=== PATIENT | male | born 1940 | race Caucasian/White ===

== ENCOUNTER 2022-09-08 10:18 | Inpatient (IN) | payer OTHER ==
--- OUTSIDE RECORDS SUMMARY | 2022-09-08 10:23 | XMS REPORT | Continuity of Care Document ---
:1940 Author Organization [facility] t Address [address] [place] [address] Dr. Combs. [address] [place] [address] Care Team Providers Name Role Phone DONI ASTORGA Attending Clinician Unavailable Doni Astorga MD Attending Clinician Pob, Adc Lab Main Attending Clinician Unavailable Only, Adc Test Attending Clinician Unavailable Doctor Unassigned, [place] Attending Clinician Unavailable Kamille Roth Anavella Attending Clinician Unava ilable DONI ASTORGA Admitting Clinician Unavailable Doni Astorga MD Admitting Clinician Scotty Roth Anav Admitting Clinician Unavailable Payers Payer Name Policy Type Policy Number Effective Date Expiration Date S clay [facility] MEDICARE [id number] 2019 COMPLETE CHOICE 00:00:00 [facility] [id number] Problems This patient has no known problems. Allergies, Adverse Reactions, Alerts Allergy Allergy Status Severity Reaction(s) Onset Inactive Treating Comm ents Source Name Type Date Date Clinician No Known DA Active U 2018- DEVEN Allergyesi - Elpidiolan s 00:00: d 00 [facility] [place] NO KNOWN Drug [facility] This patient has no known medications. Procedures This patient has no known procedures. Encounters Start End Encounter Admission Attending Care Care Encounter Source Date/Time Date/Time Type Type Clinicians Facility Department ID 2021-08-26 Outpatient RIZWAN [facility] [id number] Univers 21:51:12 [facility] 2020-03-25 2020-03-25 [facility] [id number] 09:28:59 12:37:00 Encounter Doni Hernandez 350.1.13.10 [place] 4.2.7.2.686 Surgical [id number] [place] [address] 2020-03-24 2020-03-24 Validation Architect Roshan [facility] 1.2.840.114 [id number] 11:57:56 12:12:56 Visit Lab Main [place] 350.1.13.10 [place] 4.2.7.2.686 Professio [id number] [address] 2020-03-24 2020-03-24 Laboratory Only, [facility] 1.2.840.114 [id number] 11:03:26 11:18:26 Only Test [place] 350.1.13.10 [place] 4.2.7.2.686 Professio [id number] [address] 2020-03-24 2020-03-24 Outpatient R [facility] [id number] Univers 11:15:00 11:15:00 [facility] 2019-12-18 2019-12-18 [facility] [id number] 08:10:00 10:48:00 Encounter Doni Hernandez 350.1.13.10 [place] 4.2.7.2.686 Surgical [id number] [place] [address] 2019-12-18 2019-12-18 Orders Doctor DEJESUS [id number] [id number] 00:00:00 00:00:00 Only Unassigned, ANDERS 350.1.13.10 [facility] 4.2.7.2.686 [id number] 2019-12-09 2019-12-09 Validation Architect Roshan [facility] 1.2.840.114 [id number] 12:42:05 12:57:05 Visit Lab Main [place] 350.1.13.10 [place] 4.2.7.2.686 Professio [id number] [address] 2019-07-23 2019-08-05 [facility] 3 [facility] ENCPL CVA 5260 [place] 21:00:00 10:30:00 hez, 0924 ss [facility][Note 3] itation [place] d Results Test Description Test Time Test Comments Results Result Comments Source BASIC METABOLIC PANEL 2019-07-21 06:53:00 Test Item Value Reference Range Interpretation Comme nts SODIUM (test code = NA) 138 mmol/L 134-147 N POTASSIUM (test code = K) 3.6 mmol/L 3.4-5.0 N CHLORIDE (test code = CL) 104 mmol/L 100-108 N CARBON DIOXIDE (test code = CO2) 28 mmol/L 21-32 N ANION GAP (test code = GAP) 6.0 GAP calc 4.0-15.0 N GLUCOSE (test code = GLU) 129 MG/DL 70-110 H BLOOD UREA NITROGEN (test code = BUN) 10 MG/DL 7-18 N GLOMERULAR FILTRATION RATE (test code = GFR) >=60 max estimate estG FR >60 CREATININE (test code = CREAT) 1.1 MG/DL 0.8-1.3 N CALCIUM (test code = CA) 8.3 MG/DL 8.5-10.1 L CBC W/AUTO [id number] 06:40:00 Test Item Value Reference Range Interpretation Comments WHITE BLOOD CELL (test code = 10.0 K/mm3 3.5-11.0 N WBC) RED BLOOD CELL (test code = RBC) 4.80 M/mm3 4.70-6.10 N HEMOGLOBIN (test code = HGB) 14.8 G/DL 12.3-15.9 N HEMATOCRIT (test code = HCT) 44.4 % 35.8-46.7 N MEAN CELL VOLUME (test code = 92.5 Fl 86.3-98.9 N MCV) MEAN CELL HGB (test code = MCH) 30.8 pg 28.9-34.4 N MEAN CELL HGB CONCETRATION (test 33.3 G/DL 32.1-34.5 N code = MCHC) RED CELL DISTRIBUTION WIDTH (test 13.7 SD 11.5-14.5 N code = RDW) PLATELET COUNT (test code = PLT) 219.0 K/mm3 150-450 N MEAN PLATELET VOLUME (test code = 10.40 fL 7.0-9.6 H MPV) NEUTROPHIL % (test code = NT%) 68.7 % 40-76 LYMPHOCYTE % (test code = LY%) 21.8 % 20.5-51.1 N MONOCYTE % (test code = MO%) 8.7 % 1.7-9.3 N EOSINOPHIL % (test code = EO%) 0.4 % 0.0-6.0 N BASOPHIL % (test code = BA%) 0.4 % 0.0-2.0 N NEUTROPHIL # (test code = NT#) 6.85 K/mm3 1.8-7.6 N LYMPHOCYTE # (test code = LY#) 2.2 K/mm3 0.6-3.0 N MONOCYTE # (test code = MO#) 0.9 K/mm3 0.2-1.5 N EOSINOPHIL # (test code = EO#) 0.0 K/mm3 0.0-0.4 N BASOPHIL # (test code = BA#) 0.0 K/mm3 0.0-0.2 N MANUAL DIFF REQUIRED (test code = NO DIFF/SCN CRITERIA MDIFF) GLYCOSYLATED HEMOGLOBIN [id number] 09:52:00 Test Item Value Reference Range Interpretation Comments GLYCOSYLATED HEMOGLOBIN (HA1C) 6.4 % A1C 4.2-6.3 H (test code = GLYHGB) ESTIMATED AVERAGE GLUCOSE (test 137 MG/DLest code = EAG) LIPID PROFILE (CORONARY RISK)2019-07-20 09:45:00 Test Item Value Reference Range Interpretation Comments TRIGLYCERIDES (test code = TRIG) 109 MG/DL 0-150 N CHOLESTEROL (test code = CHOL) 169 MG/DL 133-200 N CHOLESTEROL/HDL RATIO (test code = 3.93 RATIO >0 CHOLHDL) HDL CHOLESTEROL (test code = HDL) 43 MG/DL 40-59 N NON-HDL CHOLESTEROL (test code = 126 mg/dL <130 NHDL) LIPOPROTEIN LDL (test code = LDL) 112 MG/DL 0-129 N LDL/HDL (test code = LDL/HDL) 2.60 Ratio 1.48-3.22 Avg N - MRI C-SPINE W W/O [id number] 21:02:00 FAX: Claudia Pollack MD [phone] Camps: PM St: ADM FAX: Walter Calderon MD [phone] FAX:Inga Reddy [phone] Name: JUAN SERRATO : 1940 Age/S: 79/[place] [address] [address] [id number] Loc: [address] [place] [address] Phys: Inga Ornelas MD Acct: [id number] Dis Date: Status: ADM IN PHONE #: [phone] Exam Date: 07/19/20191940 FAX #: Reason: R sided deficit EXAMS: CPT: [id number] MRI C- SPINE W W/O CONT 80062 Location: T 18 MRI cervical spine, 07/19/19 TECHNIQUE: MRI assessment of the cervical spine with and without contrast on a high field magnet. Multiplanar and multisequence technique performed. Patient given 10 mL of MultiHance was given for IV contrast CLINICAL HISTORY: CVA versus TIA. Right upper and lower extremity weakness COMPARISON EXAMS: MRIimaging of the brain conducted at the same time. FINDINGS: Cord caliber well maintained without abno rmal signal. 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 This exacerbates the effect of any epidural defect. Degenerative disc changes at C5-C6 are noted. Chronic microvascular changes in the sonia. No definite signal alteration again on sagittal T2-weighted imaging correlating with questionable area restrictionin the left side of the medulla seen on the MRI imaging of the brain. Presence of a small central protrusion without stenosis at C2-C3. At C3-C4, hypertrophy of the facet joints and uncovertebral hypertrophy. Moderate degree of right greater than left foraminal narrowing. Minimal bulge with borderlinecompromise of the canal predominantly due to the narrowing of the canal. At C4-C5 there is presence of a 3 to 4 mm central protrusion. Compromise of the canal without cord deformity. Uncovertebral hypertrophy with small degree of foraminal narrowing. At C5-C6 there is presence of spondylotic central protrusion/bulge of 4 to 5 mm appearing to contact and deform the cord with compromise of the canal. No definite signal alteration within the cord. Deformity of both C6 ventral outlets and with bilateralforaminal encroachment right greater left of moderate degree. PAGE 1 Signed Report (CONTINUED) FAX: Claudia Pollack MD [phone] Camps: PM St: ADM FAX: Walter Calderon MD [phone] FAX: Inga Reddy [phone] Name: JUAN SERRATO [place] : 1940 Age/S: 79/M [address] [facility] Unit #: [id number] Loc: [address] [place] [address] Phys: Inga Ornelas MD Acct: [id number] Dis Date:Status: ADM IN PHONE #: [phone] Exam Date: 07/19/20191940 FAX #: Reason: R sided deficit EXAMS: CPT: [id number] MRI C- SPINE W W/O CONT 85053 (Continued) At C6-C7, right paracentral protrusion of 3 to 4 mm with deformity right C7 ventral outlet without definite compromise of the canal. Small degree of compromise of the canal on the right side. Foraminal narrowing right greater than left. At C7-T1 there is presence of a fairly moderate to large right far lateral/right foraminal protrusion protruding by approximately 6 to 7 mm with deformity of the right C8 ventral outlet and with significant right foraminal encroachment placing the right C8 nerve root sleeve at risk for impingement. Do not seeany definite areas of abnormal enhancement. IMPRESSION: Moderate to large right far lateral protrusion at C7-T1 with considerable deformity of the right C8 ventral outlet and with fairly severe degree of right foraminal narrowing. Compromise of the canal and with probable mild cord compression due to central protrusion at C5-C6 and with deformity of both C6 ventral outlets without signal alteration within the cord. Compromise of the canal at C4-C5 and of borderline degree at C3-C4 predominantly due to congenital narrowing of the canal Right paracentral protrusion at C6-C7 with small degree of deformity of the right C7 ventral outlet at 210 Reported and signed by: Gifty Woodall M.D. CC: Claudia Monterroso MD; Walter Carpio MD; Inga Ornelas MD Technologist: Henrry Khanna, RT(R)(CT)(MRI) Transcribed Date/Time/By: 07/19/2019 (2101) :[email or web address] Orig Print D/T: S: 07/19/2019 (2104) PAGE 2 Signed Report- CT ANGIO [id number] 20:50:00 Name: JUAN SERRATO : 1940 Age/S: 79 / M [address] [address] [place] [address] Unit #: [id number] Loc: [place] [address] Phys: Inga Ornelas MD Acct: [id number] Dis Date: Status: ADM IN PHONE #: [phone] Exam Date: 07/19/2019 1618 FAX #: Reason: R upper and lower extremity weakness Report Has Been Amended EXAMS: CPT: [id number] CT ANGIO HEAD 90732 Addendum - 07/19/2019 SIGNED 07/19/2019 ADDENDUM: [id number] CT/CTANHDWWO ADDENDUM: 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 This is noted just above the vertebral vertebral arteries probably even thrombus in the left vertebral artery/occlusion. There is fairly normal enhancement of the section maintainer and superior cerebellar artery and even of the both picas noted. Case has been reviewed with Dr. Monterroso on 07/19/19 at at 8:35 PM. Again possible small acute vascular insult in the left medulla at 2049 Reported and signed by: Gifty Woodall M.D. Transcribed: 07/19/2019 (2049) [email or web address] Report Location: T 18 CTA of the brain 07/19/19 TECHNIQUE: CTA examination of the cnuoij-fi-Jfsdml was performed on a helical scanner with patient given 100 mL of Isovue 300. Vascular protocol performed. Ultrathin slice axial images acquired from skull base through vertex of brain utilizing contiguous 0.6mm slice thickness with coronal and sagittal reformatted images acquired on the PAC workstation. Post contrast only images acquired. 3D reformatted images also acquired of the intracranial vessels using VITREA software by the interpreting radiologist . The examination was performed on an updated helical CT scanner utilizing low-dose radiation technique. Automatic exposure technique was utilized to reduce radiation dose. CLINICAL HISTORY: Right upper extremity weakness, stroke assessment, emergency room presentation Comparison exam: Head CTexam of 07/19/19 PAGE 1 Signed Report (CONTINUED) Name: JUAN SERRATO : 1940 Age/S: 79 / M [address] [address] [place] Unit #: [id number] Loc: [place] [address] Phys: Inga Ornelas MD Acct: [id number] Dis Date: Status: ADM IN PHONE #: [phone] Exam Date: 07/19/2019 161 FAX #: Reason: R upper and lower extremity weakness Report Has Been Amended EXAMS: CPT: [id number] CT ANGIO HEAD 82617 (Continued) FINDINGS: Do not see any findings suggestive of an aneurysm or vascular malformation. No discrete area of stenosis or pruning of the vessels is seen. Minimal calcificplaque formation along the left greater than right carotid system with only very minimal narrowing. No large branch occlusion is seen. No findings suggestive of vertebro basilar insufficiency is seen.No space occupying process is seen. No midline shift or abnormal enhancement is seen. No intracranial hemorrhage is seen with assessment for subarachnoid hemorrhage limited since post contrast images only acquired. IMPRESSION: No significant intracranial arterial stenosis or large branch occlusion. Noabnormal enhancing masses Location: T 18 CTA neck, 07/19/19 TECHNIQUE: CTA examination of the neck with contrast using vascular protocol performed on a helical scanner. Scanning conducted using ultrathin contiguous 0.6mm axial slice technique from aortic arch through skull base. Patient given 100 mL of Isovue 360 for contrast. High resolution sagittal and coronal reformatted images acquired on the PAC workstation. 3D volume rendering images also acquired by interpreting radiologist using VITREA software provided on the PAC system . The examination was conducted on an updated helical CT scanner utilizing low-dose radiation technique. Automatic exposure technique was utilized to reduce radiation dose CLINICAL HISTORY: Right upper and lower extremity weakness, ER presentation Comparison exam: HeadCT exam 07/19/19 PAGE 2 Signed Report (CONTINUED) Name: JUAN SERRATO : 1940 Age/S: 79 / M [address] [place] [address] Unit #: [id number] Loc: [place] [address] Phys: Inga Ornelas MD Acct: [id number] Dis Date: Status: ADM IN PHONE #: [phone] Exam Date: 07/19/2019 1612 FAX #: Reason: R upper and lower extremity weakness Report Has Been Amended EXAMS: CPT: [id number] CT ANGIO HEAD 18467 (Continued) FINDINGS: No findings of concern for vasculitis. No findings ofconcern for vascular dissection. There is a small degree of calcific plaque formation in the right carotid system with less than 30% degree of narrowing. No measurable left carotid stenosis. No tandem lesion identified more distally. Likewise there is normal enhancement seen in the vertebral arteries. Normal branching pattern of the vessels arising from the aortic arch. No significant stenosis of theprebulbar portion of either carotid artery is seen. No significant compromise of the brachiocephalicartery and subclavian arteries. No significant atherosclerotic plaque formation is seen. IMPRESSION:Less than 30% degree of stenosis in the right carotid system due to calcific plaque formation at theright carotid bulb. No measurable left carotid stenosis. No findings of concern for dissection at 1701 Reported and signed by: Gifty Woodall M.D. CC: Inga Ornelas MD Technologist:Henrry Khanna, RT(R)(CT)(MRI); CTDI: DLP: Trnscb Date/Time: 07/19/2019 (1701) [email or web address] Orig Print D/T: S: 07/19/2019 (7334) PAGE 3 Signed Report- CT ANGIO [id number] 20:50:00 Name: JUAN SERRATO : 1940 Age/S: 79 / M [address] [address] [place] Unit #: [id number] Loc: [place] [address] Phys: Inga Ornelas MD Acct: [id number] Dis Date: Status: ADMIN PHONE #: [phone] Exam Date: 07/19/2019 1625 FAX #: Reason: R upper and lower extremity weakness Report Has Been Amended EXAMS: CPT: [id number] CT ANGIO NECK 49883 Addendum - 07/19/2019 SIGNED 07/19/2019 ADDENDUM: [id number] CT/CTANNKWWO ADDENDUM: 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 This is noted just above the vertebral vertebral arteries probably even thrombus in the left vertebral artery/occlusion. There is fairly normal enhancement of the section maintainer and superior cerebellar artery and even of the both picas noted. Case has been reviewed with Dr. Monterroso on 07/19/19 at at 8:35 PM. Again possible small acute vascular insult in the left medulla at 2049 Reported and signed by: Gifty Woodall M.D. Transcribed: 07/19/2019 (2049) [email or web address] Report Location: T 18 CTA of the brain07/19/19 TECHNIQUE: CTA examination of the frlrib-or-Psupua was performed on a helical scanner with patient given 100 mL of Isovue 300. Vascular protocol performed. Ultrathin slice axial images acquired from skull base through vertex of brain utilizing contiguous 0.6mm slice thickness with coronal andsagittal reformatted images acquired on the PAC workstation. Post contrast only images acquired. 3D reformatted images also acquired of the intracranial vessels using VITREA software by the interpreting radiologist . The examination was performed on an updated helical CT scanner utilizing low-dose radiation technique. Automatic exposure technique was utilized to reduce radiation dose. CLINICAL HISTORY: Right upper extremity weakness, stroke assessment, emergency room presentation Comparison exam: Head CT exam of 07/19/19 PAGE 1 Signed Report (CONTINUED) Name: JUAN SERRATO : 1940 Age/S: 79 / M [address] [address] [place] Unit #: [id number] Loc: [place] [address] Phys: Kamini Ornelas MD Acct: [id number] Dis Date: Status: ADM IN PHONE #: [phone] Exam Date: 07/19/2019 162 FAX #: Reason: R upper and lower extremity weakness Report Has Been Amended EXAMS: CPT: [id number] CT ANGIO NECK 18245 (Continued) FINDINGS: Do not see any findings suggestive of an aneurysmor vascular malformation. No discrete area of stenosis or pruning of the vessels is seen. Minimal calcific plaque formation along the left greater than right carotid system with only very minimal narrowing. No large branch occlusion is seen. No findings suggestive of vertebro basilar insufficiency isseen. No space occupying process is seen. No midline shift or abnormal enhancement is seen. No intracranial hemorrhage is seen with assessment for subarachnoid hemorrhage limited since post contrast images only acquired. IMPRESSION: No significant intracranial arterial stenosis or large branch occlusion. No abnormal enhancing masses Location: T 18 CTA neck, 07/19/19 TECHNIQUE: CTA examination of the neck with contrast using vascular protocol performed on a helical scanner. Scanning conducted usingultrathin contiguous 0.6mm axial slice technique from aortic arch through skull base. Patient given 100 mL of Isovue 360 for contrast. High resolution sagittal and coronal reformatted images acquired on the PAC workstation. 3D volume rendering images also acquired by interpreting radiologist using VITREA software provided on the PAC system . The examination was conducted on an updated helical CT scanner utilizing low-dose radiation technique. Automatic exposure technique was utilized to reduce radiation dose CLINICAL HISTORY: Right upper and lower extremity weakness, ER presentation Comparison exam: Head CT exam 07/19/19 PAGE 2 Signed Report (CONTINUED) Name: JUAN SERRATO : 1940 Age/S: 79 / M [address] [address] [place] Unit #: [id number] Loc: [place] [address] Phys: Inga Ornelas MD Acct: [id number] Dis Date: Status: ADM IN PHONE #: [phone] Exam Date: 07/19/2019 1622 FAX #: Reason: R upper and lower extremity weakness Report Has Been Amended EXAMS: CPT:[id number] CT ANGIO NECK 01450 (Continued) FINDINGS: No findings of concern for vasculitis. No findings of concern for vascular dissection. There is a small degree of calcific plaque formation in the right carotid system with less than 30% degree of narrowing. No measurable left carotid stenosis. No tandem lesion identified more distally. Likewise there is normal enhancement seen in the vertebral arteries. Normal branching pattern of the vessels arising from the aortic arch. No significant stenosis of the prebulbar portion of either carotid artery is seen. No significant compromise of the brachiocephalic artery and subclavian arteries. No significant atherosclerotic plaque formation is seen. IMPRESSION: Less than 30% degree of stenosis in the right carotid system due to calcific plaque formation at the right carotid bulb. No measurable left carotid stenosis. No findings of concern for dissection at 1701 Reported andsigned by: Gifty Woodall M.D. CC: Inga Ornelas MD Technologist:Henrry Khanna, RT(R)(CT)(MRI); CTDI: DLP: Trnscb Date/Time: 07/19/2019 (1701) [email or web address] Orig Print D/T: S: 07/19/2019 (17 04) PAGE 3 Signed Report- MRI BRAIN W WO [id number] 20:42:00 FAX: Claudia Pollack MD [phone] Camps: PM St: ADM FAX: Walter Calderon MD [phone] FAX:Inga Reddy [phone] Name: JUAN SERRATO : 1940 Age/S: 79/M [address] [address] [place] [address] Unit #: [id number] Loc: [address] [place] [address] Phys: Inga Ornelas MD Acct: [id number] Dis Date: Status: ADM IN PHONE #: [phone] Exam Date: 07/19/2019 191 FAX #: Reason: CVA vs TIA EXAMS: CPT: [id number] MRI BRAIN W WO CONT 39710 Location: T 18 MRI brain, 07/19/19 COMPARISON EXAM: Head CT exam and CTA assessment of the head and neck of 07/19/19 TECHNIQUE: MRI examination of the brain with and without contrast performed on high field magnet with 10 ml of MultiHance was given for contrast. Multiplanar and multisequence technique acquired through brain in all 3 planes CLINICAL HISTORY: Right upper and lower extremity weakness. Stroke assessment, CVA versus TIA. FINDINGS: No positivemass-effect, midline shift, extra-axial collection, no intracranial hemorrhage seen. No acute territorial infarction is seen. There is no intra or extra-axial masses or abnormal enhancing lesions are identified. Assessment of skull base unremarkable. There is subtle high signal having a curvilinear contour on diffusion-weighted imaging in the left side of the medulla. This is noted on both coronal and axial imaging. It may be artifactual without associated signal alteration on FLAIR or T2-weighted imaging. No enhancement is seen. Follow-up may be helpful for further assessment if indicated to exclude relatively acute vascular insult. It may even exhibits subtle low signal on ADC tracing. No other findings of concern for acute vascular insult is seen. Finding in the left medulla are identified in axial images on series 4 image 5 and on diffusion-weighted imaging on image #20 of series 6.. There is age appropriate atrophy and small degree of chronic microvascular changes. No significant magnetic susceptibility artifact or old blood products. Small degree of chronic microvascular changes even seen in the snoia. The sella region is unremarkable. Abnormal flow void in the basilar artery with short segment occlusion felt to be present on CTA exam. No sinus disease is seen IMPRESSION: PAGE 1 Signed Report (CONTINUED) FAX: Claudia Pollack MD [phone] Camps: PM St: ADM FAX: Walter Calderon MD [phone] FAX: Inga Reddy [phone] Name: JUAN SERRATOScott [place] : 1940 Age/S: 79/M [address] [address] [place] Unit #: [id number] Loc: [address] [place] [address] Phys: Inga Ornelas MD Acct:[id number] Dis Date: Status: ADM IN PHONE #: [phone] Exam Date: 07/19/2019 191 FAX #: Reason: CVA vs TIA EXAMS: CPT: [id number] MRI BRAIN W WO CONT 48707 (Continued) No definite acute vascular insult or intracranial hemorrhage. No abnormal enhancement or space-occupying process. Curvilinear high signal on diffusion weighted imaging is seen in the left side of the possibly artifactual without signal alteration on FLAIR and T2-weighted imaging. Follow- up may be helpful given Abnormal flow voidof the basilar artery with short segment occlusion/critical stenosis seen on CTA exam. at 2041 Reported and signed by: Gifty Woodall M.D. CC: Claudia Monterroso MD; Walter Carpio MD; Inga Ornelas MD Technologist: Henrry Khanna, RT(R)(CT)(MRI) Transcribed Date/Time/By: 07/19/2019 (2041) :[email or web address] Orig Print D/T: S: 07/19/2019 (2044) PAGE 2 Signed Report- CT ANGIO [id number] 17:01:00 Name: JUAN SERRATOScott [place] : 1940 Age/S: 79 / M [address] [address] [place] Unit #: [id number] Loc: [place] [address] Phys: Inga Ornelas MD Acct: [id number] Dis Date: Status: REG ER PHONE #: [phone] Exam Date: 07/19/2019 1614 FAX #: Reason: R upper and lower extremity weakness EXAMS: CPT: [id number] CT ANGIO HEAD [address]709 Location: T 18 CTA of the brain 07/19/19 TECHNIQUE: CTA examination of the qlasws-ym-Akqyeb was performed on a helical scanner with patient given 100 mL of Isovue 300. Vascular protocol performed. Ultrathin slice axial images acquired from skull base through vertex of brain utilizing contiguous 0.6mm slice thickness with coronal and sagittal reformatted images acquired on the PAC workstation. Post contrast only images acquired. 3D reformatted images also acquired of the intracranial vessels using VITREA software by the interpreting radiologist . The examination was performed on an updated helical CT scanner utilizing low-dose radiation technique. Automatic exposure technique was utilized to reduce radiation dose. CLINICAL HISTORY: Right upper extremity weakness, stroke assessment, emergency room presentation Comparison exam: Head CT exam of 07/19/19FINDINGS: Do not see any findings suggestive of an aneurysm or vascular malformation. No discrete area of stenosis or pruning of the vessels is seen. Minimal calcific plaque formation along the left greater than right carotid system with only very minimal narrowing. No large branch occlusion is seen. No findings suggestive of vertebro basilar insufficiency is seen. No space occupying process is seen.No midline shift or abnormal enhancement is seen. No intracranial hemorrhage is seen with assessment for subarachnoid hemorrhage limited since post contrast images only acquired. IMPRESSION: No significant intracranial arterial stenosis or large branch occlusion. No abnormal enhancing masses Location: T 18 PAGE 1 Signed Report (CONTINUED) Name: JUAN SERRATO : 1940 Age/S: 79 / M [address] [address] [place] Unit #: [id number] Loc: [place] [address] Phys: Inga Ornelas MD Acct: [id number] Dis Date: Status: REG ER PHONE #: [phone] Exam Date: 07/19/2019 161 FAX #: Reason: R upper and lower extremity weakness EXAMS: CPT: [id number] CT ANGIO HEAD 87184 (Continued) CTA nec k, 07/19/19 TECHNIQUE: CTA examination of the neck with contrast using vascular protocol performed on a helical scanner. Scanning conducted using ultrathin contiguous 0.6mm axial slice technique from aortic arch through skull base. Patient given 100 mL of Isovue 360 for contrast. High resolution sagittal and coronal reformatted images acquired on the PAC workstation. 3D volume rendering images also acquired by interpreting radiologist using VITREA software provided on the PAC system . The examination was conducted on an updated helical CT scanner utilizing low-dose radiation technique. Automatic exposure technique was utilized to reduce radiation dose CLINICAL HISTORY: Right upper and lower extrem ity weakness, ER presentation Comparison exam: Head CT exam 07/19/19 FINDINGS: No findings of concern for vasculitis. No findings of concern for vascular dissection. There is a small degree of calcificplaque formation in the right carotid system with less than 30% degree of narrowing. No measurable left carotid stenosis. No tandem lesion identified more distally. Likewise there is normal enhancementseen in the vertebral arteries. Normal branching pattern of the vessels arising from the aortic arch. No significant stenosis of the prebulbar portion of either carotid artery is seen. No significant compromise of the brachiocephalic artery and subclavian arteries. No significant atherosclerotic plaque formation is seen. IMPRESSION: Less than 30% degree of stenosis in the right carotid system due to calcific plaque formation at the right carotid bulb. No measurable left carotid stenosis. No findingsof concern for dissection PAGE 2 Signed Report (CONTINUED) Name: JUAN SERRATO [facility] :1940 Age/S: 79 / M [address] [facility] [place] Unit #: [id number] Loc: [place] [address] Phys: Inga Ornelas MD Acct: [id number] Dis Date: Status: REG ER PHONE #: [phone] Exam Date: 07/19/2019 1612 FAX #: Reason: R upper and lower extremity weakness EXAMS: CPT: [id number] CT ANGIO HEAD 67299 (Continued) at 1701 Reported and signed by: Gifty Woodall M.D. CC: Inga Ornelas MD Technologist:Henrry Khanna, RT(R)(CT)(MRI); CTDI: DLP: Trnscb Date/Time: 07/19/2019 (170) [email or web address] Orig Print D/T: S:07/19/2019 (5545) PAGE 3 Signed Report- CT ANGIO [id number] 17:01:00 Name: JUAN SERRATO : 1940 Age/S: 79 / M [address] [address] [place] Unit #: [id number] Loc: [place] [address] Phys: Inga Ornelas MD Acct: [id number] Dis Date: Status: REG ER PHONE #: [phone] Exam Date: 07/19/2019 1622 FAX #: Reason: R upper and lower extremity weakness EXAMS: CPT: [id number] CT ANGIO NECK [address] Location: T 18 CTA of the brain 07/19/19 TECHNIQUE: CTA examination of the odryap-uz-Wkudkp was performed on a helical scanner with patient given 100 mL ofIsovue 300. Vascular protocol performed. Ultrathin slice axial images acquired from skull base through vertex of brain utilizing contiguous 0.6mm slice thickness with coronal and sagittal reformatted images acquired on the PAC workstation. Post contrast only images acquired. 3D reformatted images alsoacquired of the intracranial vessels using VITREA software by the interpreting radiologist . The examination was performed on an updated helical CT scanner utilizing low-dose radiation technique. Automatic exposure technique was utilized to reduce radiation dose. CLINICAL HISTORY: Right upper extremity weakness, stroke assessment, emergency room presentation Comparison exam: Head CT exam of 07/19/19FINDINGS: Do not see any findings suggestive of an aneurysm or vascular malformation. No discrete area of stenosis or pruning of the vessels is seen. Minimal calcific plaque formation along the left greater than right carotid system with only very minimal narrowing. No large branch occlusion is seen. No findings suggestive of vertebro basilar insufficiency is seen. No space occupying process is seen.No midline shift or abnormal enhancement is seen. No intracranial hemorrhage is seen with assessment for subarachnoid hemorrhage limited since post contrast images only acquired. IMPRESSION: No significant intracranial arterial stenosis or large branch occlusion. No abnormal enhancing masses Location:T 18 PAGE 1 Signed Report (CONTINUED) Name: JUAN SERRATO : 1940 Age/S: 79 / M [address] [address] [place] Unit #: [id number] Loc: [place] [address] Phys: Inga Ornelas MD Acct: [id number] Dis Date: Status: REG ER PHONE #: [phone] Exam Date: 07/19/2019 1622 FAX #: Reason: R upper and lower extremity weakness EXAMS: CPT: [id number] CT ANGIO NECK 55616 (Continued) CTA neck, 07/19/19 TECHNIQUE: CTA examination of the neck with contrast using vascular protocol performed alfonzo helical scanner. Scanning conducted using ultrathin contiguous 0.6mm axial slice technique from aortic arch through skull base. Patient given 100 mL of Isovue 360 for contrast. High resolution sagittal and coronal reformatted images acquired on the PAC workstation. 3D volume rendering images also acquired by interpreting radiologist using VITREA software provided on the PAC system . The examinationwas conducted on an updated helical CT scanner utilizing low-dose radiation technique. Automatic exposure technique was utilized to reduce radiation dose CLINICAL HISTORY: Right upper and lower extremity weakness, ER presentation Comparison exam: Head CT exam 07/19/19 FINDINGS: No findings of concern for vasculitis. No findings of concern for vascular dissection. There is a small degree of calcific plaque formation in the right carotid system with less than 30% degree of narrowing. No measurable left carotid stenosis. No tandem lesion identified more distally. Likewise there is normal enhancement seen in the vertebral arteries. Normal branching pattern of the vessels arising from the aortic arch. No significant stenosis of the prebulbar portion of either carotid artery is seen. No significant compromise of the brachiocephalic artery and subclavian arteries. No significant atherosclerotic plaque formation is seen. IMPRESSION: Less than 30% degree of stenosis in the right carotid system due to calcific plaque formation at the right carotid bulb. No measurable left carotid stenosis. No findings of concern for dissection PAGE 2 Signed Report (CONTINUED) Name: JUAN SERRATO : 1940 Age/S: 79 / M [address] [address] [place] Unit #: [id number] Loc: [place] [address] Phys: Inga Ornelas MD Acct: [id number] Dis Date: Status: REG ER PHONE #: [phone] Exam Date: 07/19/2019 1622 FAX #: Reason: R upper and lower extremity weakness EXAMS: CPT: [id number] CT ANGIO NECK 44196(Continued) at 1701 Reported and signed by: Gifty Woodall M.D. CC: Inga Ornelas MD Technologist:Henrry Khanna, RT(R)(CT)(MRI); CTDI: DLP: Trnscb Date/Time: 07/19/2019 (1700) t.[email or web address] Orig Print D/T: S: 0 07/19/2019 (1703) PAGE 3 Signed Report- CT HEAD/BRAIN W/O [id number] 16:55:00 Name: JUAN SERRATO [facility] : 1940 Age/S: 79 / M [address] [address] [place] Unit #: [id number] Loc: [place] [address] Phys: Inga Ornelas MD Acct: [id number] Dis Date: Status: REG ER PHONE #: [phone] Exam Date: 07/19/2019 1615 FAX #: Reason: R upper and lower extremity weakness EXAMS: CPT: [id number] CT HEAD/BRAIN W/O CONT 83959 EXAM: - CT HEAD/BRAIN W/O CONT HISTORY: R upperand lower extremity weakness LOCATION: B2 COMPARISON: None available time of interpretation. TECHNIQUE: Axial tomograms through the brain were obtained without intravenous contrast. Coronal and sagittal reformatted images are provided. All CT scans are performed using radiation dose reduction technique. Technical factors are evaluated and adjusted to insure appropriate moderation of exposure. Automated dose management technology is applied to adjust the radiation dose to minimize exposure while achieving a diagnostic quality image. FINDINGS: Mild periventricular and deep white matter hypodensities are identified indicative of chronic microvascular ischemic changes. No hypodensity suggesting acute cerebral infarction is identified, however MRI is more sensitive if this diagnosis is clinically suspected. No intracranial hemorrhage or extra-axial collection is identified. There is no mass or mass effect. There is mild diffuse prominence of the extra-axial spaces and ventricles. The orbits are unremarkable. The visualized paranasal sinuses and mastoid air cells are clear. No acute fracture is present. IMPRESSION: No acute intracranial abnormality. Mild chronic microvascular ischemic changes. at 1655 Reported and signed by: Micaela Barrera MD PAGE 1 Signed Report (CONTINUED) Name: JUAN SERRATO : 1940 Age/S: 79 / M [address] [address] [place] Unit #: [id number] Loc: [place] [address] Phys: Inga Ornelsa MD Acct: [id number] Dis Date: Status: REG ER PHONE #: [phone] Exam Date: 8 1184 FAX #: Reason: R upper and lower extremity weakness EXAMS: CPT: [id number] CT HEAD/BRAIN W/O CONT 27725 (Continued) CC: Inga Ornelas MD Technologist:Henrry Khanna, RT(R)(CT)(MRI); CTDI: DLP: Trnscb Date/Time: 07/19/2019 (1654) [email or web address] Orig Print D/T: S: 07/19/2019 (2442) PAGE 2 Signed ReportCOMPREHENSIVE METABOLIC [id number] 16:51:00 Test Item Value Reference Range Interpretation Comments SODIUM (test code = NA) 138 mmol/L 134-147 N POTASSIUM (test code = 3.8 mmol/L 3.4-5.0 N K) CHLORIDE (test code = 106 mmol/L 100-108 N CL) CARBON DIOXIDE (test 26 mmol/L 21-32 N code = CO2) ANION GAP (test code = 6.0 GAP calc 4.0-15.0 N GAP) GLUCOSE (test code = 137 MG/DL 70-110 H GLU) BLOOD UREA NITROGEN 10 MG/DL 7-18 N (test code = BUN) GLOMERULAR FILTRATION >=60 max estimate >60 RATE (test code = GFR) estGFR CREATININE (test code = 1.1 MG/DL 0.8-1.3 N CREAT) TOTAL PROTEIN (test code 7.6 G/DL 6.4-8.2 N = PROT) ALBUMIN (test code = 3.9 G/DL 3.4-5.0 N ALB) GLOBULIN (test code = 3.7 GM/dL GLOB) ALBUMIN/GLOBULIN RATIO 1.1 RATIO 1.2-2.2 L (test code = A/G) CALCIUM (test code = CA) 8.4 MG/DL 8.5-10.1 L BILIRUBIN TOTAL (test 0.70 MG/DL 0.2-1.2 N code = BILT) SGOT/AST (test code = 14 Unit/L 15-37 L AST) SGPT/ALT (test code = 12 Unit/L 12-78 N ALT) ALKALINE PHOSPHATASE 108 Unit/L 50-136 N TOTAL (test code = ALKP) Completed by Nursing: [id number] 16:51:00 Test Item Value Reference Range Interpretation Comments MAGNESIUM (test code = MAG) 2.0 MG/DL 1.8-2.4 N Completed by Nursing: [id number] 16:51:00 Test Item Value Reference Range Interpretation Comments TROPONIN-I (test < 0.015 NG/ML 0.000-0.045 N Negative: </= 0.045 code = TROPI) Positive: >/= 0.046 Correlation wit h serial results, other cardiac markers, and cl inical findings is nec essary to determine the c linical significance of this result. Quantit ative results using d ifferent methodologies s hould not be compared to one another as nume rical results may mamta yby method. Completed by Nursing: NOCBC W/AUTO [id number] 16:19:00 Test Item Value Reference Range Interpretation Comments WHITE BLOOD CELL (test code = 8.9 K/mm3 3.5-11.0 N WBC) RED BLOOD CELL (test code = RBC) 4.83 M/mm3 4.70-6.10 N HEMOGLOBIN (test code = HGB) 14.9 G/DL 12.3-15.9 N HEMATOCRIT (test code = HCT) 44.2 % 35.8-46.7 N MEAN CELL VOLUME (test code = 91.5 Fl 86.3-98.9 N MCV) MEAN CELL HGB (test code = MCH) 30.8 pg 28.9-34.4 N MEAN CELL HGB CONCETRATION (test 33.7 G/DL 32.1-34.5 N code = MCHC) RED CELL DISTRIBUTION WIDTH (test 13.8 SD 11.5-14.5 N code = RDW) PLATELET COUNT (test code = PLT) 234.0 K/mm3 150-450 N MEAN PLATELET VOLUME (test code = 10.30 fL 7.0-9.6 H MPV) NEUTROPHIL % (test code = NT%) 81.5 % 40-76 H LYMPHOCYTE % (test code = LY%) 12.5 % 20.5-51.1 L MONOCYTE % (test code = MO%) 5.7 % 1.7-9.3 N EOSINOPHIL % (test code = EO%) 0.1 % 0.0-6.0 N BASOPHIL % (test code = BA%) 0.2 % 0.0-2.0 N NEUTROPHIL # (test code = NT#) 7.28 K/mm3 1.8-7.6 N LYMPHOCYTE # (test code = LY#) 1.1 K/mm3 0.6-3.0 N MONOCYTE # (test code = MO#) 0.5 K/mm3 0.2-1.5 N EOSINOPHIL # (test code = EO#) 0.0 K/mm3 0.0-0.4 N BASOPHIL # (test code = BA#) 0.0 K/mm3 0.0-0.2 N MANUAL DIFF REQUIRED (test code = NO DIFF/SCN CRITERIA MDIFF)
[2022-09-08] MEDS ORDERED: ONDANSETRON 4 MG/2 ML VIAL ONE (10:55)
[2022-09-08] MEDS ORDERED: MORPHINE 2 MG/ML SYR ONE ×2 (10:55→13:58)
[2022-09-08 11:15] LABS: Absolute Lymphocytes (CBC) 1.2 K/uL (0.7-4.9); Hematocrit 40.6 % (39.6-49.0); Lymphocytes % 15.6 % (15.3-44.8); MCV 94.5 fL (80-100); MPV 8.8 fL (7.6-11.3)
[2022-09-08 11:30] LABS: Protime INR 1.1
--- NOTE | 2022-09-08 11:46 | ER ---
Nurse's Notes [facility] Name: Kristopher Altamirano Age: 82 yrs Sex: Male : 1940 Arrival Date: 09/08/2022 Time: 10:23 Bed 13 Private MD: Diagnosis: Displaced intertrochanteric fracture of right femur Presentation: 09/08 10:50 Chief complaint: Patient states: fell at dr office in parking lot on right hip. [facility] Coronavirus screen: Vaccine status: Patient reports receiving the 2nd dose of the covid vaccine. Client denies travel out of the [place] in the last 14 days. Ebola Screen: Patient negative for fever greater than or equal to 101.5 degrees Fahrenheit, and additional compatible Ebola Virus Disease symptoms Patient denies exposure to infectious person. Patient denies travel to an Ebola-affected area in the 21 days before illness onset. Initial Sepsis Screen: Does the patient meet any 2 criteria? No. Patient's initial sepsis screen is negative. Does the patient have a suspected source of infection? No. Patient's initial sepsis screen is negative. Risk Assessment: Do you want to hurt yourself or someone else? Patient reports no desire to harm self or others. 10:50 Method Of Arrival: Wheelchair [facility] 10:50 Acuity: BEATRIZ 3 5 Triage Assessment: 10:51 General: Appears distressed, uncomfortable, well groomed, well developed, well jh5 nourished, Behavior is calm, cooperative, appropriate for age. Pain: Complains of pain in right hip. Historical: - Allergies: 10:51 No Known Allergies; jh5 - PMHx: 10:51 Hypercholesterolemia; Hypertensive disorder; [facility] - Immunization history:: Adult Immunizations up to date. - Social history:: Smoking status: Patient denies any tobacco usage or history of. - Family history:: not pertinent. - Hospitalizations: : No recent hospitalization is reported. Screenin:55 Abuse screen: Denies threats or abuse. Denies injuries from another. Nutritional kb3 screening: No deficits noted. Tuberculosis screening: No symptoms or risk factors identified. Fall Risk None identified. Assessment: 10:55 General: Appears distressed, uncomfortable, Behavior is cooperative, appropriate for kb3 age. Pain: Complains of pain in right hip Pain currently is 10 out of 10 on a pain scale. Neuro: No deficits noted. Cardiovascular: No deficits noted. Respiratory: No deficits noted. GI: No deficits noted. : No deficits noted. EENT: No deficits noted. Derm: No deficits noted. Musculoskeletal: Reports Pain is 10 out of 10 on a pain scale. Injury Description: Deformity sustained to right hip is displaced, was sustained less than 30 minutes ago. Vital Signs: 10:50 Pulse 67; Resp 16; Temp 98.7; Pulse Ox 100% ; Weight 68.04 kg; Height 5 ft. 6 in. [facility] (167.64 cm); 12:03 BP 151 / 89; Pulse 77; Resp 18; Pulse Ox 98% ; Pain 9/10; kb3 14:23 BP 141 / 85; Pulse 84; Pulse Ox 99% on R/A; ko1 10:50 Body Mass Index 24.21 (68.04 kg, 167.64 cm) [facility] [place] Coma Score: 10:55 Eye Response: spontaneous(4). Verbal Response: oriented(5). Motor Response: obeys kb3 commands(6). Total: 15. Trauma Score (Adult): 10:55 Eye Response: spontaneous(1); Verbal Response: oriented(1); Motor Response: obeys kb3 commands(2); Systolic BP: > 89 mm Hg(4); Respiratory Rate: 10 to 29 per min(4); Georges Score: 15; Trauma Score: 12 ED Course: 10:23 Patient arrived in ED. rg4 10:39 Mundo Lopez MD is Attending Physician. rn 10:41 Mila Moulton, JENNY is Primary Nurse. ko1 10:51 Triage completed. 5 10:51 Arm band placed on right wrist. jh5 10:55 Patient has correct armband on for positive identification. Bed in low position. Call kb3 light in reach. Side rails up X 1. Client placed on continuous cardiac and pulse oximetry monitoring. NIBP monitoring applied. monitoring analyst on. Door closed. Noise minimized. Lights dimmed. Warm blanket given. Pillow given. 11:09 Inserted saline lock: 20 gauge in left antecubital area, using aseptic technique. Blood ko1 collected. placed by Eva ASHBY observed by Kelvin ALVARADO. 11:46 Yossi Rosado MD is Hospitalizing Provider. rn 12:09 XRAY Hip RIGHT 2 view In Process Unspecified. EDMS 12:09 XRAY Pelvis In Process Unspecified. EDMS 12:12 SARS RAPID Sent. jh5 Administered Medications: 11:01 Drug: Zofran (Ondansetron) 4 mg Route: IVP; Site: left antecubital; ko1 11:07 Drug: morphine 2 mg Route: IVP; Infused Over: 4 mins; Site: left antecubital; ko1 12:21 Drug: morphine 4 mg Route: IVP; Infused Over: 4 mins; Site: left antecubital; kb3 Medication: 10:55 VIS not applicable for this client. kb3 Outcome: 11:46 Decision to Hospitalize by Provider. rn 15:08 Patient left the ED. kj1 Signatures: Dispatcher [employer] EDMS Mundo Lopez MD MD rn Garcia, Rubi rg4 Jackson, Kandis kj1 Carol [place] RN RN jh5 Galilea Guerrero RN RN kb3 Mila Moulton RN RN ko1
--- NOTE | 2022-09-08 11:47 | EDPHYS ---
Physician Documentation [facility] Name: Kristopher Altamirano Age: 82 yrs Sex: Male : 1940 Arrival Date: 09/08/2022 Time: 10:23 Bed 13 Private MD: ED Physician Mundo Lopez HPI: 09/08 11:46 This 82 yrs old Male presents to ER via Wheelchair with complaints of Fall Injury. rn 11:46 Details of fall: The patient fell from an upright position. Onset: The symptoms/episode rn began/occurred just prior to arrival. Associated injuries: The patient sustained right hip. Severity of symptoms: At their worst the symptoms were moderate, in the emergency department the symptoms are unchanged. The patient has not experienced similar symptoms in the past. The patient has been recently seen by a physician:. Pt reports fall after walking out of doctor's office today, hit only right hip and only pain to right hip. . Historical: - Allergies: 10:51 No Known Allergies; jh5 - PMHx: 10:51 Hypercholesterolemia; Hypertensive disorder; [facility] - Immunization history:: Adult Immunizations up to date. - Social history:: Smoking status: Patient denies any tobacco usage or history of. - Family history:: not pertinent. - Hospitalizations: : No recent hospitalization is reported. ROS: 11:46 Constitutional: Negative for fever, chills, and weight loss, Eyes: Negative for injury, rn pain, redness, and discharge, Neck: Negative for injury, pain, and swelling, Cardiovascular: Negative for chest pain, palpitations, and edema, Respiratory: Negative for shortness of breath, cough, wheezing, and pleuritic chest pain, Abdomen/GI: Negative for abdominal pain, nausea, vomiting, diarrhea, and constipation, Back: Negative for injury and pain, MS/Extremity: + right hip injury and pain Skin: Negative for injury, rash, and discoloration, Neuro: Negative for headache, weakness, numbness, tingling, and seizure. Exam: 11:46 Constitutional: This is a well developed, well nourished patient who is awake, alert, rn and in no acute distress. Head/Face: Normocephalic, atraumatic. Eyes: Periorbital areas with no swelling, redness, or edema. Cardiovascular: Regular rate and rhythm. No pulse deficits. Respiratory: No increased work of breathing, no retractions or nasal flaring. Abdomen/GI: Soft, non-tender Back: No spinal tenderness. No costovertebral tenderness. Full range of motion. Skin: Warm, dry MS/ Extremity: Pulses equal, no cyanosis. + tenderness right proximal femur with painful ROM. Neuro: Awake and alert, GCS 15 Vital Signs: 10:50 Pulse 67; Resp 16; Temp 98.7; Pulse Ox 100% ; Weight 68.04 kg; Height 5 ft. 6 in. jh5 (167.64 cm); 12:03 BP 151 / 89; Pulse 77; Resp 18; Pulse Ox 98% ; Pain 9/10; kb3 14:23 BP 141 / 85; Pulse 84; Pulse Ox 99% on R/A; ko1 10:50 Body Mass Index 24.21 (68.04 kg, 167.64 cm) jh5 [place] Coma Score: 10:55 Eye Response: spontaneous(4). Verbal Response: oriented(5). Motor Response: obeys kb3 commands(6). Total: 15. Trauma Score (Adult): 10:55 Eye Response: spontaneous(1); Verbal Response: oriented(1); Motor Response: obeys kb3 commands(2); Systolic BP: > 89 mm Hg(4); Respiratory Rate: 10 to 29 per min(4); Georges Score: 15; Trauma Score: 12 MDM: 10:39 Patient medically screened. rn 11:46 Differential diagnosis: contusion, fracture, sprain, strain. Data reviewed: vital rn signs, nurses notes, radiologic studies, plain films, and as a result, I will admit patient. Counseling: I had a detailed discussion with the patient and/or guardian regarding: the historical points, exam findings, and any diagnostic results supporting the discharge/admit diagnosis, radiology results, the need for further work-up and treatment in the hospital. Response to treatment: the patient's symptoms have mildly improved after treatment, and as a result, I will admit patient. Admission orders: after a detailed discussion of the patient's condition and case, the admit orders are written by me. 09/08 10:50 Order name: CBC with Diff; Complete Time: 12:27 rn 09/08 10:50 Order name: Basic Metabolic Panel; Complete Time: 12:27 rn 09/08 10:50 Order name: Protime (+inr); Complete Time: 12:27 rn 09/08 10:50 Order name: Ptt, Activated; Complete Time: 12:27 rn 09/08 10:50 Order name: XRAY Hip RIGHT 2 view; Complete Time: 12:27 rn 09/08 11:59 Order name: SARS RAPID kj1 09/08 10:50 Order name: IV Start; Complete Time: 11:07 rn 09/08 10:50 Order name: XRAY Pelvis; Complete Time: 12:27 rn 09/08 12:51 Order name: CONS Physician Consult; Complete Time: 13:38 EDMS 09/08 12:51 Order name: Heart Healthy; Complete Time: 13:38 EDMS 09/08 12:51 Order name: NPO; Complete Time: 13:38 EDMS Administered Medications: 11:01 Drug: Zofran (Ondansetron) 4 mg Route: IVP; Site: left antecubital; ko1 11:07 Drug: morphine 2 mg Route: IVP; Infused Over: 4 mins; Site: left antecubital; ko1 12:21 Drug: morphine 4 mg Route: IVP; Infused Over: 4 mins; Site: left antecubital; kb3 Disposition Summary: 09/08/22 11:46 Hospitalization Ordered Hospitalization Status: Inpatient Admission rn Provider: Yossi Rosado rn [facility] Condition: Stable rn Problem: new rn Symptoms: have improved rn Bed/Room Type: Standard rn Room Assignment: 221(09/08/22 14:06) kj1 Diagnosis - Displaced intertrochanteric fracture of right femur rn Forms: - Medication Reconciliation Form rn - SBAR form rn Signatures: Dispatcher [employer] EDMS Mundo Lopez MD MD rn Jackson, Kandis kj1 Carol Ann Mills RN RN jh5 Galilea Guerrero RN RN kb3 Mila Moulton RN RN ko1 Corrections: (The following items were deleted from the chart) 14:06 11:46 rn kj1
--- NOTE | 2022-09-08 12:13 | RAD REPORT ---
EXAM DESCRIPTION: RAD - Pelvis - 09/08/2022 12:07 pm CLINICAL HISTORY: Right hip pain FINDINGS: Intertrochanteric fracture right femur extends to the greater trochanter and sub trochante marley regions. Lesser trochanter also involved. Moderate displacement fracture fragments Varus angulation is present at the fracture site. No dislocation seen.
[2022-09-08] MEDS ORDERED: MORPHINE 4 MG/ML SYR ONE (12:15)
--- NOTE | 2022-09-08 12:15 | RAD REPORT ---
EXAM DESCRIPTION: RAD - Hip Right 2 View - 09/08/2022 12:07 pm CLINICAL HISTORY: Right hip pain FINDINGS: Intertrochanteric fracture right femur extends to the greater trochanter and sub trochante marley regions. Lesser trochanter also involved. Moderate displacement fracture fragments Varus angulation is present at the fracture site. No dislocation seen.
[2022-09-08 12:29] LABS: SARS-CoV-2 Antigen Rapid Res Negative (Negative)
[2022-09-08] MEDS ORDERED: ACETAMINOPHEN 500 MG TAB PO PRN (12:45)
--- NOTE | 2022-09-08 12:49 | P.HP ---
Certification for Inpatient Patient admitted to: Inpatient With expected LOS: >2 Midnights Patient will require the following post-hospital care: None Practitioner: I am a practitioner with admitting privileges, knowledge of patient current condition, hospital course, and medical plan of care. Services: Services provided to patient in accordance with Admission requirements found in Title 42 Section 412.3 of the Code of Federal Regulations Patient History Date of Service: 09/08/22 Primary Care Provider: Dr. Mccauley Reason for admission: Right Femur Fracture History of Present Illness: Mr. Kristopher Altamirano is a pleasant 82-year-old male who has a past medical history of prior cerebrovascular accident with right-sided residual deficits, hypertension, hyperlipidemia who presents to the [facility] Emergency Department for right hip pain. He reports that, earlier today while ambulating on the sidewalk, he suffered a mechanical ground-level fall, for which she landed on his right hip. He states that he has had right sided neurologic deficits from his previous stroke about 3 years ago. While ambulating, he states that he missed a step, and fell onto his right hip. He mentions that he landed on the concrete outside. He denies any loss of consciousness or head trauma. He denies taking any medications for symptoms. He currently grades his pain a 7-8/10 in severity. On review of systems, he denies any fevers, chills, headaches, dizziness, syncope, weakness, chest pain, palpitations, shortness of breath, wheezing, cough, abdominal pain, nausea/vomiting, diarrhea, constipation, hematochezia, melena, dysuria, hematuria, myalgia, or any other symptoms. He presented to the Emergency Department for further evaluation. Upon presentation, his vital signs were stable. His laboratory studies were fairly unremarkable. Right hip x-ray revealed, "intertrochanteric fracture right femur extends to the greater trochanter and sub trochanteric regions. Lesser trochanter also involved. Moderate displacement fracture fragments Varus angulation is present at the fracture site. No dislocation seen." Orthopedic Surgery was consulted in the Emergency Department, and recommendations are pending. In the Emergency Department, he was given morphine and ondansetron. He was admitted to the General Internal Medicine service for further evaluation. Allergies No Known Allergies Allergy (Unverified 09/08/22 13:03) Home medications list reviewed: Yes Home Medications: RX: Aspirin [Low Dose Aspirin EC] 81 mg PO DAILY 09/08/22 RX: Atorvastatin Calcium 40 mg PO BEDTIME 09/08/22 RX: Lisinopril [Zestril] 20 mg PO DAILY 09/08/22 - Past Medical/Surgical History -: Cerebrovascular Accident with Right-Sided Residual Deficits -: Hypertension -: Hyperlipidemia Past Surgical History: Patient denies surgical history - Family History Family History: Reviewed- Non-Contributory - Social History Smoking Status: Never smoker Alcohol use: No CD- Drugs: No Review of Systems General: Unremarkable Eyes: Unremarkable ENT: Unremarkable Respiratory: Unremarkable Cardiovascular: Unremarkable Gastrointestinal: Unremarkable Genitourinary: Unremarkable Musculoskeletal: Leg Pain (right hip) Integumentary: Unremarkable Neurological: Unremarkable Physical Examination - Vital Signs Temperature: 98.7 F Pulse: 67 Respirations: 16 Pulse Ox (%): 100 - Physical Exam General: Alert, In no apparent distress, Oriented x3 HEENT: Atraumatic, PERRLA, Mucous membr. moist/pink, EOMI, Sclerae nonicteric Neck: Supple, JVD not distended Respiratory: Clear to auscultation bilaterally, Normal air movement Cardiovascular: No edema, Regular rate/rhythm, Normal S1 S2, No gallops, No rubs, No murmurs Capillary refill: <2 Seconds Gastrointestinal: Normal bowel sounds, Soft and benign, Non-distended, No tenderness, No rebound, No guarding Musculoskeletal: No clubbing, Tenderness (right hip) Integumentary: No rashes Neurological: Normal speech, Cranial nerves 3-12 intact, Normal affect - Studies Laboratory Data (last 24 hrs) 09/08/22 11:02: PT 12.1, INR 1.10, APTT 28.9 09/08/22 11:02: Sodium 138, Potassium 4.0, BUN 15, Creatinine 1.02, Glucose 148 H 09/08/22 11:02: WBC 7.60, Hgb 13.5 L, Hct 40.6, Plt Count 210 Assessment and Plan - Plan # Traumatic Ground-Level Fall complicated by an Acute Right Intertrochanteric Femur Fracture - Admit to Medicine - Orthopedic Surgery consulted and Dr. Lopez spoke with Dr. Mendez - recommendations appreciated - Plan for surgery in the morning - Will require post-operative physical therapy - For pain: - Acetaminophen 650 mg PO q6hr PRN mild-moderate pain - Morphine 2 mg IV q4hr PRN severe pain - NPO past midnight - Pre-operative labs ordered: PT/INR, type & screen, COVID-19 swab # History of Cerebrovascular Accident with Residual Right-Sided Deficits # Hypertension # Hyperlipidemia - Hold home aspirin in anticipation for surgery tomorrow - Continue home atorvastatin, lisinopril Yossi Rosado M.D. - Advance Directives Does patient have a Living Will: No Does patient have a Durable POA for Healthcare: No - Code Status/Comfort Care Code Status Assessed: Yes Code Status: Full Code
[2022-09-08] MEDS: MORPHINE 2 MG/ML SYR IV PRN ×2 (13:55→20:15)
[2022-09-08 14:30] VITALS: BMI 24.2
[2022-09-08] MEDS ORDERED: MORPHINE 2 MG/ML SYR IV ONE (17:00)
[2022-09-08] MEDS ORDERED: INFLUENZA VACCINE (for 6+ mo) 0.5 ML DOSE IMVAC ONE (17:00)
[2022-09-08] MEDS: ATORVASTATIN 40 MG TAB PO SCH (20:15)
[2022-09-09] MEDS: MORPHINE 2 MG/ML SYR IV PRN ×3 (00:38→09:46)
[2022-09-09] MEDS: lisinopriL 20 MG TAB PO SCH (08:23)
[2022-09-09] MEDS ORDERED: CEFAZOLIN SODIUM 1 GM/VIAL ONE ×2 (13:13→17:30)
[2022-09-09] MEDS ORDERED: Ringers Lactate 1,000 ML IV ONE (13:13)
[2022-09-09] MEDS ORDERED: FENTANYL CITR 100 MCG/2 ML ONE (14:14)
[2022-09-09] MEDS ORDERED: propofoL 200 MG/20 ML VIAL IV ONE (14:14)
[2022-09-09] MEDS ORDERED: LIDOCAINE 2% MPF 5 ML VIAL ONE (14:14)
[2022-09-09] MEDS ORDERED: KETOROLAC 30 MG/ML INJ ONE (14:56)
[2022-09-09] MEDS ORDERED: dexAMETHasone 4 MG/ML VIAL ONE (15:10)
[2022-09-09] MEDS ORDERED: ONDANSETRON 4 MG/2 ML VIAL ONE (15:10)
[2022-09-09] MEDS ORDERED: EPINEPHRINE/PF 1 MG/ML AMP ONE (15:13)
[2022-09-09] MEDS ORDERED: dexAMETHasone 10 MG/ML VIAL ONE (15:15)
[2022-09-09] MEDS ORDERED: BUPIVACAINE 0.25% PF 10 ML VIAL ONE (15:15)
[2022-09-09] MEDS ORDERED: NS 0.9% VIAL 10 ML ONE (15:16)
--- NOTE | 2022-09-09 15:45 | P.BOP ---
Preoperative diagnosis: right hip intertrochanteric fracture Postoperative diagnosis: same Primary procedure: right hip geneva fixation Estimated blood loss: 100ccs Anesthesia: General Complications: None Transferred to: Recovery Room Condition: Good
--- NOTE | 2022-09-09 15:54 | EKG ---
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
[2022-09-09] MEDS ORDERED: MEPERIDINE HCL 25 MG/ML SYR ONE (16:02)
--- NOTE | 2022-09-09 16:20 | RAD REPORT ---
EXAM DESCRIPTION: - Hip in OR Right 2 View - 09/09/2022 3:52 pm CLINICAL HISTORY: hip rodding COMPARISON: No comparisons FINDINGS/IMPRESSION: Thirty intraoperative fluoroscopic images were submitted demonstrating placemen t of an intramedullary higinio and cephalomedullary screw in the right hip. Tumor dose: 13.6 mGy Fluoro time: 1.3 minutes
[2022-09-09] MEDS ORDERED: NA CHLORIDE 0.9% 50 ML ONE (17:29)
[2022-09-09] MEDS: CEFAZOLIN 1 GM in NA CHLORIDE 0.9% 50 ML IVPB SCH (17:33)
--- NOTE | 2022-09-09 19:33 | P.PN ---
Subjective Date of Service: 09/09/22 Primary Care Provider: Dr. Mccauley Chief Complaint: Right Femur Fracture No acute events overnight. He states that his pain is well controlled with his current pain regimen. He is eager for surgery today. Review of Systems 10-point ROS is otherwise unremarkable Musculoskeletal: Leg Pain (right hip) Physical Examination - Vital Signs Temperature: 98.1 F Blood Pressure: 128/58 Pulse: 79 Respirations: 18 Pulse Ox (%): 93 Assessment And Plan - Plan - Physical Exam General: Alert, In no apparent distress, Oriented x3 HEENT: Atraumatic, PERRLA, Mucous membr. moist/pink, EOMI, Sclerae nonicteric Neck: Supple, JVD not distended Respiratory: Clear to auscultation bilaterally, Normal air movement Cardiovascular: No edema, Regular rate/rhythm, Normal S1 S2, No gallops, No rubs, No murmurs Capillary refill: <2 Seconds Gastrointestinal: Normal bowel sounds, Soft and benign, Non-distended, No tenderness, No rebound, No guarding Musculoskeletal: No clubbing, Tenderness (right hip) Integumentary: No rashes Neurological: Normal speech, Cranial nerves 3-12 intact, Normal affect Assessment and Plan - Plan # Traumatic Ground-Level Fall complicated by an Acute Right Intertrochanteric Femur Fracture - Admit to Medicine - Orthopedic Surgery consulted and spoke with Dr. Mendez - recommendations appreciated - Plan for surgery this afternoon at 15:00 - Will require post-operative physical therapy - For pain: - Acetaminophen 650 mg PO q6hr PRN mild-moderate pain - Morphine 2 mg IV q4hr PRN severe pain - NPO # History of Cerebrovascular Accident with Residual Right-Sided Deficits # Hypertension # Hyperlipidemia - Hold home aspirin in anticipation for surgery - Continue home atorvastatin, lisinopril Yossi Rosado M.D.
[2022-09-09] MEDS: ATORVASTATIN 40 MG TAB PO SCH (20:43)
[2022-09-09] MEDS: ENSURE SURGERY 237 ML CAN PO SCH (20:48)
[2022-09-10] MEDS ORDERED: NA CHLORIDE 0.9% 50 ML ONE (01:16)
[2022-09-10] MEDS: CEFAZOLIN 1 GM in NA CHLORIDE 0.9% 50 ML IVPB SCH (01:17)
[2022-09-10] MEDS ORDERED: CEFAZOLIN SODIUM 1 GM/VIAL ONE (01:17)
--- NOTE | 2022-09-10 02:12 | OP ---
Date of Procedure: 09/09/2022 Surgeon: Jose Luis Mendez MD Preoperative Diagnosis: Right hip displaced comminuted intertrochanteric fracture. Postoperative Diagnosis: Right hip displaced comminuted intertrochanteric fracture. Procedure: Right hip closed reduction with intramedullary higinio fixation using the [employer] nail from [employer]. Estimated Blood Loss: 100 cc. Specimen: There were no complications. Specimen: There are no pathology specimens sent. Indications: Mr. Altamirano is an 82-year-old male who I saw yesterday in the Emergency Department and has a comminuted displaced intertrochanteric fracture. Risks, benefits, and alternatives to this pro cedure have been discussed with him including different methods of managing it. He says he understan ds things as presented and agreed to closed reduction intramedullary fixation and other indicated pro cedure. Description Of Procedure: The patient was taken to the operating room and general anesthesia was obt ained in his bed. He was then transferred to the fracture table where he was appropriately positione d with all of his bony prominences being checked. The right lower extremity was then placed in a pos ition of reduction including traction and some internal rotation. This appears to line up quite well . Following this, his right lower extremity was then prepped and draped in usual sterile fashion and the greater trochanter is marked out. A vertical incision was made above the greater trochanter, ca refully through skin and soft tissues as well as the fascia. A finger was placed in the wound to est ablish the position of the trochanter and the starting awl was then used to establish a starting poin t. The guide higinio was then placed without difficulty down the shaft across the fracture site. A curtain cutter hand was then used to widen this and the higinio was then placed at appropriate depth. After this the guide higinio was removed and the cephalomedullary screw was placed using a guide pin and biplanar C-arm images. After this was placed in appropriate position, an antirotation screw was then placed as wel l. After this, the distal interlocking screw was placed in standard fashion. The wound was irrigate d and the fascia was closed in a watertight fashion using heavy Vicryl sutures. This was followed by closure of the skin using Vicryl, followed by sarah placed, and then placed an Aquacel dressing an d taken to recovery room. SE/MODL Voice ID: [id number] Report ID: [id number]
[2022-09-10] MEDS: ENOXAPARIN 30 MG/0.3 ML SQ SCH ×2 (08:09→21:35)
[2022-09-10] MEDS: MORPHINE 2 MG/ML SYR IV PRN ×3 (08:09→21:36)
[2022-09-10] MEDS: lisinopriL 20 MG TAB PO SCH (08:09)
[2022-09-10] MEDS: ENSURE SURGERY 237 ML CAN PO SCH ×2 (08:10→21:00)
--- NOTE | 2022-09-10 13:33 | CON ---
Date of Consultation: 09/08/2022 History Of Present Illness: This is my first time seeing this patient to my knowledge. He is an 82- year-old male who unfortunately fell injuring his right lower extremity. He was seen in exam in the emergency department where he was cleared for other injuries; however, x-rays demonstrated a comminut ed and highly displaced intertrochanteric fracture on the right. Physical Examination: Musculoskeletal: All of his long bones and joints are palpated without pain or crepitation with the exception of his right hip and this hip is painful with any attempted movement. Laboratory Data: Review of the x-ray does demonstrate a comminuted multipart intertrochanteric fract ure with displacement. Risks, benefits, and alternatives of different methods of treating this have been discussed with the patient. He states he understands things as presented and we will have him obtain medical clearance most likely move forward with closed reduction and intramedullary higinio fixation tomorrow. He understa nds the risks, benefits, alternatives, and agrees to proceed. /DG Voice ID: [id number] Report ID: [id number]
--- NOTE | 2022-09-10 14:23 | P.PN ---
Subjective Date of Service: 09/10/22 Primary Care Provider: Dr. Mccauley Chief Complaint: Right Femur Fracture No acute events overnight. Post-op day # 1 from right hip closed reduction with intramedullary higinio fixation. He states that his pain is well controlled with his current pain regimen. He is eager to work with PT today. Review of Systems 10-point ROS is otherwise unremarkable Musculoskeletal: Leg Pain (right hip) Physical Examination - Vital Signs Temperature: 97.2 F Blood Pressure: 119/62 Pulse: 83 Respirations: 16 Pulse Ox (%): 91 Assessment And Plan - Plan - Physical Exam General: Alert, In no apparent distress, Oriented x3 HEENT: Atraumatic, PERRLA, Mucous membr. moist/pink, EOMI, Sclerae nonicteric Neck: Supple, JVD not distended Respiratory: Clear to auscultation bilaterally, Normal air movement Cardiovascular: No edema, Regular rate/rhythm, Normal S1 S2, No gallops, No rubs, No murmurs Capillary refill: <2 Seconds Gastrointestinal: Normal bowel sounds, Soft and benign, Non-distended, No tenderness, No rebound, No guarding Musculoskeletal: No clubbing, Tenderness (right hip) Integumentary: No rashes Neurological: Normal speech, Cranial nerves 3-12 intact, Normal affect Assessment and Plan - Plan # Traumatic Ground-Level Fall complicated by an Acute Right Intertrochanteric Femur Fracture - Admited to Medicine - Orthopedic Surgery consulted and spoke with Dr. Mendez - recommendations appreciated - POD #1 - right hip closed reduction with intramedullary higinio fixation - Physical Therapy evaluation requested - For pain: - Acetaminophen 650 mg PO q6hr PRN mild-moderate pain - Morphine 2 mg IV q4hr PRN severe pain - SQ enoxaparin 30 mg BID per Ortho recs # History of Cerebrovascular Accident with Residual Right-Sided Deficits # Hypertension # Hyperlipidemia - Hold home aspirin in anticipation for surgery - Continue home atorvastatin, lisinopril Yossi Rosado M.D.
[2022-09-10] MEDS: ATORVASTATIN 40 MG TAB PO SCH (21:36)
[2022-09-11 04:06] LABS: Absolute Lymphocytes (CBC) 1.5 K/uL (0.7-4.9); Hematocrit 31.9 % (39.6-49.0); Lymphocytes % 8.2 % (15.3-44.8); MPV 9.1 fL (7.6-11.3); RBC Red Blood Cell Count 3.39 M/uL (4.33-5.43)
[2022-09-11 04:20] LABS: Potassium 4.2 mmol/L (3.5-5.1)
[2022-09-11] MEDS: ENOXAPARIN 30 MG/0.3 ML SQ SCH ×2 (07:20→20:00)
[2022-09-11] MEDS: lisinopriL 20 MG TAB PO SCH (07:20)
[2022-09-11] MEDS: ENSURE SURGERY 237 ML CAN PO SCH ×2 (07:21→20:04)
[2022-09-11] MEDS: MORPHINE 2 MG/ML SYR IV PRN ×4 (07:21→23:44)
--- NOTE | 2022-09-11 10:57 | P.PN ---
Subjective Date of Service: 09/11/22 Primary Care Provider: Dr. Mccauley Chief Complaint: Right Femur Fracture No acute events overnight. Post-op day # 2 from right hip closed reduction with intramedullary higinio fixation. This morning, he reports significant right hip pain, but mentions that his current pain medicine is helping. He had been working well with PT. He is requesting placement into acute rehab, which seems reasonable. Physical Examination - Vital Signs Temperature: 97.5 F Blood Pressure: 141/68 Pulse: 78 Respirations: 18 Pulse Ox (%): 93 Assessment And Plan - Plan - Physical Exam General: Alert, In no apparent distress, Oriented x3 HEENT: Atraumatic, PERRLA, Mucous membr. moist/pink, EOMI, Sclerae nonicteric Neck: Supple, JVD not distended Respiratory: Clear to auscultation bilaterally, Normal air movement Cardiovascular: No edema, Regular rate/rhythm, Normal S1 S2, No gallops, No rubs, No murmurs Capillary refill: <2 Seconds Gastrointestinal: Normal bowel sounds, Soft and benign, Non-distended, No tenderness, No rebound, No guarding Musculoskeletal: No clubbing, Tenderness (right hip) Integumentary: No rashes Neurological: Normal speech, Cranial nerves 3-12 intact, Normal affect Assessment and Plan - Plan # Traumatic Ground-Level Fall complicated by an Acute Right Intertrochanteric Femur Fracture # Suspect Reactive Leukocytosis due to pain - no current evidence of infection - Orthopedic Surgery consulted and spoke with Dr. Mendez - recommendations appreciated - POD #2 - right hip closed reduction with intramedullary higinio fixation - Physical Therapy evaluation requested - Per Mr. Altamirano, he was told PT will re-evaluate him tomorrow to decide on whether or not he would benefit from inpatient vs outpatient services - For pain: - Acetaminophen 650 mg PO q6hr PRN mild-moderate pain - Morphine 2 mg IV q4hr PRN severe pain - SQ enoxaparin 30 mg BID per Ortho recs - Ordered CXR due to leukocytosis # History of Cerebrovascular Accident with Residual Right-Sided Deficits # Hypertension # Hyperlipidemia - Continue home aspirin, atorvastatin, lisinopril Yossi Rosado M.D.
--- NOTE | 2022-09-11 12:24 | RAD REPORT ---
EXAM DESCRIPTION: RAD - Chest Single View - 09/11/2022 12:16 pm CLINICAL HISTORY: leukocytosis COMPARISON: No comparisonsNo comparisons FINDINGS: Lines: None. Lungs: No evidence of edema or pneumonia. Pleural: No significant pleural effusions or pneumothorax. Cardiac: Mild cardiomegaly Mediastinum: Within normal limits. Bones: No acute fractures. Other: None IMPRESSION: No acute cardiopulmonary disease.
[2022-09-11] MEDS: ASPIRIN EC 81 MG TAB PO SCH (12:29)
[2022-09-11] MEDS: ATORVASTATIN 40 MG TAB PO SCH (19:59)
[2022-09-12] MEDS: MORPHINE 2 MG/ML SYR IV PRN ×4 (03:28→20:03)
[2022-09-12 06:18] LABS: Absolute Lymphocytes (CBC) 2.7 K/uL (0.7-4.9); Hematocrit 30.6 % (39.6-49.0); MCV 94.6 fL (80-100); MPV 9.3 fL (7.6-11.3); RBC Red Blood Cell Count 3.23 M/uL (4.33-5.43)
[2022-09-12] MEDS: lisinopriL 20 MG TAB PO SCH (08:35)
[2022-09-12] MEDS: ENSURE SURGERY 237 ML CAN PO SCH ×3 (08:35→21:00)
[2022-09-12] MEDS: ENOXAPARIN 30 MG/0.3 ML SQ SCH ×2 (08:35→20:02)
[2022-09-12] MEDS: ASPIRIN EC 81 MG TAB PO SCH (08:35)
--- NOTE | 2022-09-12 16:05 | P.PN ---
Date of Service: 09/12/22 Subjective No acute events overnight. Post-op day # 2 from right hip closed reduction with intramedullary higinio fixation. This morning, he reports significant right hip pain, but mentions that his current pain medicine is helping. He had been working well with PT. He is requesting placement into acute rehab, which seems reasonable. Physical Examination - Vital Signs Reviewed - Physical Exam General: Alert, In no apparent distress, Oriented x3 Respiratory: Clear to auscultation bilaterally, Normal air movement Cardiovascular: Regular rate/rhythm, Normal S1 S2, No gallops, No rubs, No murmurs Gastrointestinal: Normal bowel sounds, Soft and benign, Non-distended, No tenderness, No rebound, No guarding Musculoskeletal: No clubbing, Tenderness (right hip) Neurological: No focal deficits Assessment and Plan -Assessment # Traumatic Ground-Level Fall complicated by an Acute Right Intertrochanteric Femur Fracture # Suspect Reactive Leukocytosis due to pain - no current evidence of infection # History of Cerebrovascular Accident with Residual Right-Sided Deficits # Hypertension # Hyperlipidemia - Plan -Working on rehab placement -Continue with physical therapy evaluation -Continue with pain control -Strict blood pressure control
[2022-09-12] MEDS: HYDROCODONE/APAP 10/325 TAB PO PRN (16:32)
[2022-09-12] MEDS: ATORVASTATIN 40 MG TAB PO SCH (20:03)
[2022-09-13] MEDS: MORPHINE 2 MG/ML SYR IV PRN ×4 (02:07→20:29)
[2022-09-13] MEDS: ASPIRIN EC 81 MG TAB PO SCH (08:07)
[2022-09-13] MEDS: ENOXAPARIN 30 MG/0.3 ML SQ SCH ×2 (08:07→20:29)
[2022-09-13] MEDS: lisinopriL 20 MG TAB PO SCH (08:07)
[2022-09-13] MEDS: ENSURE SURGERY 237 ML CAN PO SCH ×2 (08:08→20:49)
[2022-09-13] MEDS: ATORVASTATIN 40 MG TAB PO SCH (20:28)
[2022-09-14] MEDS: MORPHINE 2 MG/ML SYR IV PRN ×2 (04:34→09:28)
[2022-09-14] MEDS: ENSURE SURGERY 237 ML CAN PO SCH ×2 (09:00→21:00)
[2022-09-14] MEDS: ENOXAPARIN 30 MG/0.3 ML SQ SCH ×2 (09:27→21:57)
[2022-09-14] MEDS: ASPIRIN EC 81 MG TAB PO SCH (09:27)
[2022-09-14] MEDS: lisinopriL 20 MG TAB PO SCH (09:28)
[2022-09-14] MEDS ORDERED: ONDANSETRON 4 MG/2 ML VIAL IV PRN (14:00)
[2022-09-14] MEDS ORDERED: MORPHINE 2 MG/ML SYR IV ONE (21:20)
[2022-09-14] MEDS: ATORVASTATIN 40 MG TAB PO SCH (21:56)
--- NOTE | 2022-09-15 01:08 | P.PN ---
Date of Service: 09/15/22 Patient has been very agitated this evening. Earlier he reported that his pain was not controlled by norco, so I gave a 1x morphine dose and explained why he is no longer getting IV pain medication. He later refused his evening medications. He now states that he has been complaining of nausea and "clamminess" since 12 this afternoon although he refused zofran when offered. He was tachycardic during my exam. No fever, abdominal tenderness, cough, vomiting, shortness of breath. Patient is not cooperative answering my questions. I again offered him zofran. RN is aware.
--- NOTE | 2022-09-15 02:53 | P.PN ---
Date of Service: 09/13/22 Subjective PATIENT WORKING WITH PHYSICAL THERAPY WELL. STILL HAVING QUITE A BIT OF PAIN. HOPING TO GET PATIENT INTO INPATIENT REHAB IF ACCEPTED BY SURE IS COMPLETE. 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
--- NOTE | 2022-09-15 02:54 | P.PN ---
Date of Service: 09/14/22 Subjective Patient continues to improve. Clinical symptoms are better. Physical Examination - Vital Signs Reviewed - Physical Exam General: Alert, In no apparent distress, Oriented x3 Respiratory: Clear to auscultation bilaterally, Normal air movement Cardiovascular: Regular rate/rhythm, Normal S1 S2, No gallops, No rubs, No murmurs Gastrointestinal: Normal bowel sounds, Soft and benign, Non-distended, No tenderness, No rebound, No guarding Musculoskeletal: No clubbing, Tenderness (right hip) Neurological: No focal deficits Assessment and Plan -Assessment # Traumatic Ground-Level Fall complicated by an Acute Right Intertrochanteric Femur Fracture # Suspect Reactive Leukocytosis due to pain - no current evidence of infection # History of Cerebrovascular Accident with Residual Right-Sided Deficits # Hypertension # Hyperlipidemia - Plan -Patient was denied by inpatient rehab. [facility] -Continue with physical therapy evaluation -Continue with pain control -Strict blood pressure control
[2022-09-15 06:12] LABS: Absolute Lymphocytes (CBC) 1.7 K/uL (0.7-4.9); Hematocrit 33.2 % (39.6-49.0); Lymphocytes % 15.6 % (15.3-44.8); MCV 93.9 fL (80-100); MPV 8.8 fL (7.6-11.3); RBC Red Blood Cell Count 3.53 M/uL (4.33-5.43)
[2022-09-15 06:28] LABS: Albumin 2.9 g/dL (3.4-5.0); Bilirubin Total 1.9 mg/dL (0.2-1.0); Magnesium 2.1 mg/dL (1.8-2.4); Protein, Total 6.3 g/dL (6.4-8.2)
[2022-09-15] MEDS: ENSURE SURGERY 237 ML CAN PO SCH ×2 (09:00→21:00)
[2022-09-15] MEDS: ENOXAPARIN 30 MG/0.3 ML SQ SCH ×2 (09:31→21:59)
[2022-09-15] MEDS: lisinopriL 20 MG TAB PO SCH (09:31)
[2022-09-15] MEDS: ASPIRIN EC 81 MG TAB PO SCH (09:31)
--- NOTE | 2022-09-15 14:05 | P.PN ---
Date of Service: 09/15/22 Subjective Patient is clinically doing well. He is frustrated that he has not been accepted to rehab. Expedited appeal by inpatient rehab. I have signed off on the paperwork. Hopefully he will get accepted. If not he may go home with home health or to a correction facility placement. He is very frustrated with not being able to go to rehab at this time. Physical Examination - Vital Signs Reviewed - Physical Exam General: Alert, In no apparent distress, Oriented x3 Respiratory: Clear to auscultation bilaterally, Normal air movement Cardiovascular: Regular rate/rhythm, Normal S1 S2, No gallops, No rubs, No murmurs Gastrointestinal: Normal bowel sounds, Soft and benign, Non-distended, No tenderness, No rebound, No guarding Musculoskeletal: No clubbing, Tenderness (right hip) Neurological: No focal deficits Assessment and Plan -Assessment # Traumatic Ground-Level Fall complicated by an Acute Right Intertrochanteric Femur Fracture # Suspect Reactive Leukocytosis due to pain - no current evidence of infection # History of Cerebrovascular Accident with Residual Right-Sided Deficits # Hypertension # Hyperlipidemia - Plan -Patient was denied by inpatient rehab. Will attempt correction facility placement -Continue with physical therapy evaluation -Continue with pain control -Strict blood pressure control
[2022-09-15] MEDS: ATORVASTATIN 40 MG TAB PO SCH (21:59)
[2022-09-16] MEDS: HYDROCODONE/APAP 10/325 TAB PO PRN ×3 (05:31→19:16)
[2022-09-16 06:01] LABS: Hematocrit 30.7 % (39.6-49.0); Lymphocytes % 21.9 % (15.3-44.8); MCV 94.1 fL (80-100); RBC Red Blood Cell Count 3.26 M/uL (4.33-5.43)
[2022-09-16 06:36] LABS: Albumin 2.8 g/dL (3.4-5.0); Bilirubin Total 2.1 mg/dL (0.2-1.0); Magnesium 2.1 mg/dL (1.8-2.4); Potassium 4.2 mmol/L (3.5-5.1)
[2022-09-16 07:33] LABS: Bilirubin Direct 0.8 mg/dL (0-0.2)
[2022-09-16] MEDS: ENSURE SURGERY 237 ML CAN PO SCH (09:00)
[2022-09-16] MEDS: ASPIRIN EC 81 MG TAB PO SCH (09:31)
[2022-09-16] MEDS: ENOXAPARIN 30 MG/0.3 ML SQ SCH ×2 (09:31→20:14)
[2022-09-16] MEDS: lisinopriL 20 MG TAB PO SCH (09:31)
--- NOTE | 2022-09-16 18:16 | P.PN ---
Subjective Date of Service: 09/16/22 Primary Care Provider: Dr. Mccauley Chief Complaint: Right Femur Fracture No acute events overnight. Post-op day # 7 from right hip closed reduction with intramedullary higinio fixation. This morning, he reports significant frustration with the inability to be discharged to inpatient rehab. He reports that his pain is well-controlled. Appreciate case management assistance with placement. Review of Systems 10-point ROS is otherwise unremarkable Musculoskeletal: Leg Pain (right hip, mild) Physical Examination - Vital Signs Temperature: 97.7 F Blood Pressure: 102/65 Pulse: 80 Respirations: 16 Pulse Ox (%): 99 Assessment And Plan - Plan - Physical Exam General: Alert, In no apparent distress, Oriented x3 HEENT: Atraumatic, PERRLA, Mucous membr. moist/pink, EOMI, Sclerae nonicteric Neck: Supple, JVD not distended Respiratory: Clear to auscultation bilaterally, Normal air movement Cardiovascular: No edema, Regular rate/rhythm, Normal S1 S2, No gallops, No rubs, No murmurs Capillary refill: <2 Seconds Gastrointestinal: Normal bowel sounds, Soft and benign, Non-distended, No tenderness, No rebound, No guarding Musculoskeletal: No clubbing Integumentary: No rashes Neurological: Normal speech, Cranial nerves 3-12 intact, Normal affect Assessment and Plan - Plan # Traumatic Ground-Level Fall complicated by an Acute Right Intertrochanteric Femur Fracture # Suspect Reactive Leukocytosis due to pain - no current evidence of infection - Orthopedic Surgery consulted and spoke with Dr. Mendez - recommendations appreciated - POD #7 - right hip closed reduction with intramedullary higinio fixation - Physical Therapy evaluation requested - Denied by insurance for inpatient rehab. Appreciate CM assistance with placement - Pain control - SQ enoxaparin 30 mg BID per Ortho recs # History of Cerebrovascular Accident with Residual Right-Sided Deficits # Hypertension # Hyperlipidemia - Continue home aspirin, atorvastatin, lisinopril Yossi Rosado M.D.
[2022-09-16] MEDS: ATORVASTATIN 40 MG TAB PO SCH (20:14)
[2022-09-17 00:09] VITALS: O2SAT 98
[2022-09-17] MEDS: HYDROCODONE/APAP 10/325 TAB PO PRN ×3 (00:36→08:55)
[2022-09-17] MEDS: lisinopriL 20 MG TAB PO SCH (08:55)
[2022-09-17] MEDS: ASPIRIN EC 81 MG TAB PO SCH (08:55)
[2022-09-17] MEDS: ENOXAPARIN 30 MG/0.3 ML SQ SCH ×2 (08:56→21:21)
--- NOTE | 2022-09-17 12:15 | P.PN ---
Subjective Date of Service: 09/17/22 Primary Care Provider: Dr. Mccauley Chief Complaint: Right Femur Fracture No acute events overnight. Post-op day # 8 from right hip closed reduction with intramedullary higinio fixation. He reports that his pain is well-controlled, but he will occasionally experience muscle spasms with prolonged exertion. Appreciate case management assistance with placement. Review of Systems 10-point ROS is otherwise unremarkable Musculoskeletal: Leg Pain (right hip) Physical Examination - Vital Signs Temperature: 97.5 F Blood Pressure: 143/72 Pulse: 76 Respirations: 18 Pulse Ox (%): 98 Assessment And Plan - Plan - Physical Exam General: Alert, In no apparent distress, Oriented x3 HEENT: Atraumatic, PERRLA, Mucous membr. moist/pink, EOMI, Sclerae nonicteric Neck: Supple, JVD not distended Respiratory: Clear to auscultation bilaterally, Normal air movement Cardiovascular: No edema, Regular rate/rhythm, Normal S1 S2, No gallops, No rubs, No murmurs Capillary refill: <2 Seconds Gastrointestinal: Normal bowel sounds, Soft and benign, Non-distended, No tenderness, No rebound, No guarding Musculoskeletal: No clubbing Integumentary: No rashes Neurological: Normal speech, Cranial nerves 3-12 intact, Normal affect Assessment and Plan - Plan # Traumatic Ground-Level Fall complicated by an Acute Right Intertrochanteric Femur Fracture # Suspect Reactive Leukocytosis due to pain - no current evidence of infection - Orthopedic Surgery consulted and spoke with Dr. Mendez - recommendations appreciated - POD #8 - right hip closed reduction with intramedullary higinio fixation - Physical Therapy evaluation requested - Denied by insurance for inpatient rehab. Appreciate CM assistance with placement - Unlikely to occur over weekend - Pain control - SQ enoxaparin 30 mg BID per Ortho recs - Started PRN cyclobenzaprine # History of Cerebrovascular Accident with Residual Right-Sided Deficits # Hypertension # Hyperlipidemia - Continue home aspirin, atorvastatin, lisinopril Yossi Rosado M.D.
[2022-09-17] MEDS ORDERED: CYCLOBENZAPRINE 10 MG TAB PO PRN (12:33)
[2022-09-17] MEDS: ATORVASTATIN 40 MG TAB PO SCH (21:21)
--- NOTE | 2022-09-18 07:21 | P.DS ---
Admission Date: 09/08/22 Discharge Date: 09/18/22 Primary Care Provider: Dr. Mccauley Disposition: TRANSFER TO INPATIENT REHAB Discharge Condition: GOOD Reason for Admission: Right Femur Fracture Consultations: 1. Orthopedic Surgery Procedures: - 09/09/2022 - Right Hip Closed Reduction with Intramedullary Naif Fixation Hospital Course: DIAGNOSES: # Traumatic Ground-Level Fall complicated by an Acute Right Intertrochanteric Femur Fracture # Suspect Reactive Leukocytosis due to pain - no current evidence of infection # History of Cerebrovascular Accident with Residual Right-Sided Deficits # Hypertension # Hyperlipidemia HOSPITAL COURSE: Mr. Kristopher Altamirano is a pleasant 82-year-old male who has a past medical history of prior cerebrovascular accident with right-sided residual deficits, hypertension, hyperlipidemia who was admitted to the [facility] on 09/08/2022 for an acute right intertrochanteric femur fracture. He was admitted to the Medicine service. Orthopedic Surgery was consulted and he was evaluated by Dr. Mendez. On 09/09/2022, he underwent a right hip closed reduction with intramedullary naif fixation. He did well postoperatively. Physical therapy was consulted and recommended placement to inpatient rehabilitation. However, he was initially denied by his insurance. With the assistance of case management, he was accepted to [facility] inpatient rehabilitation for 7 days. On 09/18/2022, he was seen on morning rounds and deemed medically stable for discharge. He was discharged with instructions to schedule follow-up appointments with his PCP (Dr. Mccauley) and with Orthopedic Surgery (Dr. Mendez). He was given the opportunity to ask questions and reported no further questions. Furthermore, all questions were answered to the best of my ability. A copy of this discharge summary will be sent to the above providers to facilitate continuity of care. Today, I personally spent 20 minutes on his case, of which greater than 50% of the time was spent in patient education, counseling, and coordination of care as described above. - Physical Exam General: Alert, In no apparent distress, Oriented x3 HEENT: Atraumatic, PERRLA, Mucous membr. moist/pink, EOMI, Sclerae nonicteric Neck: Supple, JVD not distended Respiratory: Clear to auscultation bilaterally, Normal air movement Cardiovascular: No edema, Regular rate/rhythm, Normal S1 S2, No gallops, No rubs, No murmurs Capillary refill: <2 Seconds Gastrointestinal: Normal bowel sounds, Soft and benign, Non-distended, No tenderness, No rebound, No guarding Musculoskeletal: No clubbing Integumentary: No rashes Neurological: Normal speech, Cranial nerves 3-12 intact, Normal affect Vital Signs/Physical Exam: Temp Pulse Resp BP Pulse Ox 98.3 F 80 16 127/69 97 09/18/22 04:00 09/18/22 04:00 09/18/22 04:00 09/18/22 04:00 09/18/22 04:00 Laboratory Data at Discharge: WBC 9.10 K/uL (4.3-10.9) 09/16/22 05:25 Hgb 10.4 g/dL (13.6-17.9) L D 09/16/22 05:25 Hct 30.7 % (39.6-49.0) L 09/16/22 05:25 Plt Count 282 K/uL (152-406) 09/16/22 05:25 PT 12.1 SECONDS (9.5-12.5) 09/08/22 11:02 INR 1.10 09/08/22 11:02 APTT 28.9 SECONDS (24.3-36.9) 09/08/22 11:02 Sodium 136 mmol/L (136-145) 09/16/22 05:25 Potassium 4.2 mmol/L (3.5-5.1) 09/16/22 05:25 BUN 19 mg/dL (7-18) H 09/16/22 05:25 Creatinine 0.89 mg/dL (0.55-1.3) 09/16/22 05:25 Glucose 131 mg/dL (74-106) H 09/16/22 05:25 Magnesium 2.1 mg/dL (1.8-2.4) 09/16/22 05:25 Total Bilirubin 2.1 mg/dL (0.2-1.0) H 09/16/22 05:25 AST 27 U/L (15-37) 09/16/22 05:25 ALT 32 U/L (12-78) 09/16/22 05:25 Alkaline Phosphatase 97 U/L (45-117) 09/16/22 05:25 Home Medications: RX: Aspirin [Low Dose Aspirin EC] 81 mg PO DAILY 09/08/22 RX: Atorvastatin Calcium 40 mg PO BEDTIME 09/08/22 RX: Lisinopril [Zestril] 20 mg PO DAILY 09/08/22 Physician Discharge Instructions: 1. You are being discharged to Inpatient Rehab here at [facility] for continued Physical Therapy 2. Once you are released from Rehab, please schedule the following: - A follow-up appointment with your PCP (Dr. Mccauley) in 3-5 days - A follow-up appointment with Orthopedic Surgery (Dr. Mendez) in 1-2 weeks Diet: Regular Activity: Fall precautions Followup: Burke Mccauley MD [Primary Care Provider] - (call to schedule an appointment) Jose Luis Mendez MD [ACTIVE - CAN ADMIT] - (call to schedule an appointment) Time spent managing pt's care (in minutes): 20
[2022-09-18] MEDS: lisinopriL 20 MG TAB PO SCH (08:28)
[2022-09-18] MEDS: ASPIRIN EC 81 MG TAB PO SCH (08:29)
[2022-09-18] MEDS: ENOXAPARIN 30 MG/0.3 ML SQ SCH (08:29)
[2022-09-18 08:58] VITALS: BP 137/76; TEMP 97.6
== END 2022-09-18 09:20 | DRG 481 ==
LOC: ER 10:18 → ERHOLD 12:45 → 2ND 14:57
PROVIDERS: ADMIT Internal Medicine; ATTEND Internal Medicine
PROC: 0QS636Z Reposition Right Upper Femur with Intramedullary Internal Fixation Device, Percutaneous Approach (ICD-10-PCS; principal; 2022-09-09 15:00)
DX: S72.141A Displaced intertrochanteric fracture of right femur, initial encounter for closed fracture (principal); I69.351 Hemiplegia and hemiparesis following cerebral infarction affecting right dominant side; E78.5 Hyperlipidemia, unspecified; I10 Essential (primary) hypertension; I69.398 Other sequelae of cerebral infarction; D72.829 Elevated white blood cell count, unspecified; Z79.82 Long term (current) use of aspirin; Z79.899 Other long term (current) drug therapy; Z20.822 Contact with and (suspected) exposure to COVID-19; W01.0XXA Fall on same level from slipping, tripping and stumbling without subsequent striking against object, initial encounter; Y93.9 Activity, unspecified; Y92.9 Unspecified place or not applicable
CPT/HCPCS: 36415; 71045; 72170; 80048; 80053; 82248; 83735; 85025; 85610; 85730; 86850; 86900; 86901; 87811; 93005; 96374; 96375; 97110; 97116; 97161; 97165; 97530; 99284; A4216; J0171; J0690; J1100; J1650; J2001; J2175; J2270; J2405; J2704; J3010; J7120

== ENCOUNTER 2022-09-18 08:13 | Inpatient (IN) | payer OTHER ==
--- OUTSIDE RECORDS SUMMARY | 2022-09-18 09:30 | XMS REPORT | Continuity of Care Document ---
:1940 Author Organization [facility] t Address [address] [place] [address] Dr. Com[address] [place] [address] Care Team Providers Name Role Phone DONI ASTORGA Attending Clinician Unavailable Doni Astorga MD Attending Clinician Pob, Adc Lab Main Attending Clinician Unavailable Only, Adc Test Attending Clinician Unavailable Doctor Unassigned, [place] Attending Clinician Unavailable Kamille Roth Anavella Attending Clinician Unava ilable DONI ASTORGA Admitting Clinician Unavailable Doni Astorga MD Admitting Clinician Scotty Roth Anav Admitting Clinician Unavailable Payers Payer Name Policy Type Policy Number Effective Date Expiration Date S clay [facility] MEDICARE [id number] 2019 COMPLETE CHOICE 00:00:00 [facility] [id number] Problems This patient has no known problems. Allergies, Adverse Reactions, Alerts Allergy Allergy Status Severity Reaction(s) Onset Inactive Treating Comm ents Source Name Type Date Date Clinician No Known DA Active U 2018- DEVEN Allergyesi - Helen s 00:00: d 00 Medical [place] NO KNOWN Drug Active [facility] This patient has no known medications. Procedures This patient has no known procedures. Encounters Start End Encounter Admission Attending Care Care Encounter Source Date/Time Date/Time Type Type Clinicians Facility Department ID 2021-08-26 Outpatient RIZWAN [facility] [id number] Univers 21:51:12 [facility] 2020-03-25 2020-03-25 [facility] [id number] 09:28:59 12:37:00 Encounter Doni Hernandez 350.1.13.10 [place] 4.2.7.2.686 Surgical [id number] [place] [address] 2020-03-24 2020-03-24 Scrape Gatherer [facility] 1.2.840.114 [id number] 11:57:56 12:12:56 Visit Lab Main [place] 350.1.13.10 [place] 4.2.7.2.686 Professio [id number] [address] 2020-03-24 2020-03-24 Laboratory Only, [facility] 1.2.840.114 [id number] 11:03:26 11:18:26 Only Test [place] 350.1.13.10 [place] 4.2.7.2.686 Professio [id number] [address] 2020-03-24 2020-03-24 Outpatient R [facility] [id number] Univers 11:15:00 11:15:00 [facility] 2019-12-18 2019-12-18 [facility] [id number] 08:10:00 10:48:00 Encounter Doni Hernandez 350.1.13.10 [place] 4.2.7.2.686 Surgical [id number] [place] [address] 2019-12-18 2019-12-18 Orders Doctor DEJESUS [id number] 00:00:00 00:00:00 Only Unassigned, [facility] 350.1.13.10 [facility] 4.2.7.2.686 [id number] 2019-12-09 2019-12-09 Scrape Gatherer Roshan [facility] 1.2.840.114 [id number] 12:42:05 12:57:05 Visit Lab Main [place] 350.1.13.10 [place] 4.2.7.2.686 Professio [phone] [address] 2019-07-23 2019-08-05 [facility] 3 [facility] ENCPL CVA 5260 [place] 21:00:00 10:30:00 hez, 0924 ss [facility] itation [place] d Results Test Description Test [...] CA) 8.3 MG/DL 8.5-10.1 L CBC W/AUTO [id number] 06:40:00 Test Item Value Reference Range Interpretation [...] = NO DIFF/SCN CRITERIA MDIFF) GLYCOSYLATED HEMOGLOBIN [id number] 09:52:00 Test Item Value Reference Range Interpretation [...] Avg N - MRI C-SPINE W W/O [id number] 21:02:00 FAX: Claudia Pollack MD [phone] Camps: PM St: ADM FAX: Walter Calderon MD [phone] FAX:Inga Reddy [phone] Name: JUAN SERRATO : 1940 Age/S: 79/M [address] [address] [id number] Loc: [address] [place] [address] Phys: Inga Ornelas MD Acct: [id number] Dis Date: Status: ADM IN PHONE #: [phone] Exam Date: 07/19/20191940 FAX #: Reason: R sided deficit EXAMS: CPT: [id number] MRI C- SPINE W W/O CONT 96773 Location: T 18 MRI cervical spine, 07/19/19 [...] Signed Report (CONTINUED) FAX: Claudia Pollack MD [phone] Camps: PM St: ADM FAX: Walter Calderon MD [phone] FAX: Inga Reddy [phone] Name: JUAN SERRATO [place] : 1940 Age/S: 79/M [address] [facility] Unit #: [id number] Loc: [address] [place] [address] Phys: Inga Ornelas MD Acct: [id number] Dis Date:Status: ADM IN PHONE #: [phone] Exam Date: 07/19/20191940 FAX #: Reason: R sided deficit EXAMS: CPT: [id number] MRI C- SPINE W W/O CONT 89913 (Continued) At C6-C7, right paracentral protrusion of [...] (2104) PAGE 2 Signed Report- CT ANGIO [id number] 20:50:00 Name: JUAN SERRATO : 1940 Age/S: 79 / M [address] [address] [place] Unit #: [id number] Loc: [place] [address] Phys: Inga Ornelas MD Acct: [id number] Dis Date: Status: ADM IN PHONE #: [phone] Exam Date: 07/19/2019 1618 FAX #: Reason: R upper and lower extremity weakness Report Has Been Amended EXAMS: CPT: [id number] CT ANGIO HEAD 28200 Addendum - 07/19/2019 SIGNED 07/19/2019 ADDENDUM: [id number] CT/CTANHDWWO ADDENDUM: 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 This is noted just above the vertebral vertebral arteries probably even thrombus in the left vertebral artery/occlusion. There is fairly normal enhancement of the electrolog operator and superior cerebellar artery and even of the both picas noted. Case has been reviewed with Dr. Monterroso on 07/19/19 at at 8:35 PM. Again possible small acute vascular insult in the left medulla at 2049 Reported and signed by: Gifty Woodall M.D. Transcribed: 07/19/2019 (2049) [email or web address] Report Location: T 18 CTA of the brain 07/19/19 TECHNIQUE: CTA examination of the qqqgwi-vl-Gyfuqe was performed on a helical scanner with [...] SERRATO : 1940 Age/S: 79 / M [address] [address] Unit #: [id number] Loc: [place] [address] Phys: Inga Ornelas MD Acct: [id number] Dis Date: Status: ADM IN PHONE #: [phone] Exam Date: 07/19/2019 1612 FAX #: Reason: R upper and lower extremity weakness Report Has Been Amended EXAMS: CPT: [id number] CT ANGIO HEAD 72468 (Continued) FINDINGS: Do not see any findings [...] SERRATO : 1940 Age/S: 79 / M [address] [address] [place] Unit #: [id number] Loc: [place] [address] Phys: Inga Ornelas MD Acct: [id number] Dis Date: Status: ADM IN PHONE #: [phone] Exam Date: 07/19/2019 161 FAX #: Reason: R upper and lower extremity weakness Report Has Been Amended EXAMS: CPT: [id number] CT ANGIO HEAD 66288 (Continued) FINDINGS: No findings of concern for [...] (1701) [email or web address] Orig Print D/T: S: 07/19/2019 (9389) PAGE 3 Signed Report- CT ANGIO [id number] 20:50:00 Name: JUAN SERRATO : 1940 Age/S: 79 / M [address] [address] Unit #: [id number] Loc: [place] [address] Phys: Inga Ornelas MD Acct: [id number] Dis Date: Status: ADMIN PHONE #: [phone] Exam Date: 07/19/2019 1621 FAX #: Reason: R upper and lower extremity weakness Report Has Been Amended EXAMS: CPT: [id number] CT ANGIO NECK 23933 Addendum - 07/19/2019 SIGNED 07/19/2019 ADDENDUM: [id number] CT/CTANNKWWO ADDENDUM: 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 This is noted just above the vertebral vertebral arteries probably even thrombus in the left vertebral artery/occlusion. There is fairly normal enhancement of the electrolog operator and superior cerebellar artery and even of the both picas noted. Case has been reviewed with Dr. Monterroso on 07/19/19 at at 8:35 PM. Again possible small acute vascular insult in the left medulla at 2049 Reported and signed by: Gifty Woodall M.D. Transcribed: 07/19/2019 (2049) [email or web address] Report Location: T 18 CTA of the brain07/19/19 TECHNIQUE: CTA examination of the rqluvm-kz-Hhuufu was performed on a helical scanner with [...] SERRATO : 1940 Age/S: 79 / M [address] [address] Unit #: [id number] Loc: [place] [address] Phys: Kamini Ornelas MD Acct: [id number] Dis Date: Status: ADM IN PHONE #: [phone] Exam Date: 07/19/2019 1626 FAX #: Reason: R upper and lower extremity weakness Report Has Been Amended EXAMS: CPT: [id number] CT ANGIO NECK 73074 (Continued) FINDINGS: Do not see any findings [...] SERRATO : 1940 Age/S: 79 / M [address] [address] [place] Unit #: [id number] Loc: [place] [address] Phys: Inga Ornelas MD Acct: [id number] Dis Date: Status: ADM IN PHONE #: [phone] Exam Date: 07/19/2019 1622 FAX #: Reason: R upper and lower extremity weakness Report Has Been Amended EXAMS: CPT:[id number] CT ANGIO NECK 93831 (Continued) FINDINGS: No findings of concern for [...] 3 Signed Report- MRI BRAIN W WO [id number] 20:42:00 FAX: Claudia Pollack MD [phone] Camps: PM St: ADM FAX: Walter Calderon MD [phone] FAX:Inga Reddy [phone] Name: JUAN SERRATO : 1940 Age/S: 79/M [address] [address] [place] Unit #: [id number] Loc: [address] [place] [address] Phys: Inga Ornelas MD Acct: [id number] Dis Date: Status: ADM IN PHONE #: [phone] Exam Date: 07/19/2019 191 FAX #: Reason: CVA vs TIA EXAMS: CPT: [id number] MRI BRAIN W WO CONT 41003 Location: T 18 MRI brain, 07/19/19 COMPARISON [...] chronic microvascular changes even seen in the sonia. The sella region is unremarkable. Abnormal flow void in the basilar artery with short segment occlusion felt to be present on CTA exam. No sinus disease is seen IMPRESSION: PAGE 1 Signed Report (CONTINUED) FAX: Claudia Pollack MD [phone] Camps: PM St: ADM FAX: Walter Calderon MD [phone] FAX: Inga Reddy [phone] Name: JUAN SERRATOScott [place] : 1940 Age/S: 79/M [address] [address] Unit #: [id number] Loc: [address] [place] [address] Phys: Inga Ornelas MD Acct:[id number] Dis Date: Status: ADM IN PHONE #: [phone] Exam Date: 07/19/2019 191 FAX #: Reason: CVA vs TIA EXAMS: CPT: [id number] MRI BRAIN W WO CONT 60622 (Continued) No definite acute vascular insult or [...] (2044) PAGE 2 Signed Report- CT ANGIO [id number] 17:01:00 Name: JUAN SERRATOScott [place] : 1940 Age/S: 79 / M [address] [address] [place] Unit #: [id number] Loc: [place] [address] Phys: Inga Ornelas MD Acct: [id number] Dis Date: Status: REG ER PHONE #: [phone] Exam Date: 07/19/2019 1615 FAX #: Reason: R upper and lower extremity weakness EXAMS: CPT: [id number] CT ANGIO HEAD 74873 Location: T 18 CTA of the brain 07/19/19 TECHNIQUE: CTA examination of the hkfwxl-uu-Pkpuib was performed on a helical scanner with [...] SERRATO : 1940 Age/S: 79 / M [address] [address] [place] Unit #: [id number] Loc: [place] [address] Phys: Inga Ornelas MD Acct: [id number] Dis Date: Status: REG ER PHONE #: [phone] Exam Date: 07/19/2019 1619 FAX #: Reason: R upper and lower extremity weakness EXAMS: CPT: [id number] CT ANGIO HEAD 34153 (Continued) CTA nec k, 07/19/19 TECHNIQUE: CTA [...] 2 Signed Report (CONTINUED) Name: JUAN SERRATO [facility] :1940 Age/S: 79 / M [address] [facility] [place] Unit #: [id number] Loc: [place] [address] Phys: Inga Ornelas MD Acct: [id number] Dis Date: Status: REG ER PHONE #: [phone] Exam Date: 07/19/2019 1615 FAX #: Reason: R upper and lower extremity weakness EXAMS: CPT: [id number] CT ANGIO HEAD 03986 (Continued) at 1701 Reported and signed by: Gifty Woodall M.D. CC: Inga Ornelas MD Technologist:Henrry Khanna, RT(R)(CT)(MRI); CTDI: DLP: Trnscb Date/Time: 07/19/2019 (170) [email or web address] Orig Print D/T: S:07/19/2019 (6397) PAGE 3 Signed Report- CT ANGIO [id number] 17:01:00 Name: JUAN SERRATO : 1940 Age/S: 79 / M [address] [address] Unit #: [id number] Loc: [place] [address] Phys: Inga Ornelas MD Acct: [id number] Dis Date: Status: REG ER PHONE #: [phone] Exam Date: 07/19/2019 1622 FAX #: Reason: R upper and lower extremity weakness EXAMS: CPT: [id number] CT ANGIO NECK 46451 Location: T 18 CTA of the brain 07/19/19 TECHNIQUE: CTA examination of the lkhvck-ls-Vtiqwq was performed on a helical scanner with [...] SERRATO : 1940 Age/S: 79 / M [address] [address] [place] Unit #: [id number] Loc: [place] [address] Phys: Inga Ornelas MD Acct: [id number] Dis Date: Status: REG ER PHONE #: [phone] Exam Date: 07/19/2019 1622 FAX #: Reason: R upper and lower extremity weakness EXAMS: CPT: [id number] CT ANGIO NECK 11105 (Continued) CTA neck, 07/19/19 TECHNIQUE: CTA examination [...] SERRATO : 1940 Age/S: 79 / M [address] [address] [place] Unit #: [id number] Loc: [place] [address] Phys: Inga Ornelas MD Acct: [id number] Dis Date: Status: REG ER PHONE #: [phone] Exam Date: 07/19/2019 1622 FAX #: Reason: R upper and lower extremity weakness EXAMS: CPT: [id number] CT ANGIO NECK 65099(Continued) at 1701 Reported and signed by: Gifty Woodall M.D. CC: Inga Ornelas MD Technologist:Henrry Khanna, RT(R)(CT)(MRI); CTDI: DLP: Trnscb Date/Time: 07/19/2019 (1700) t.[email or web address] Orig Print D/T: S: 0 07/19/2019 (1703) PAGE 3 Signed Report- CT HEAD/BRAIN W/O [id number] 16:55:00 Name: JUAN SERRATO [facility] : 1940 Age/S: 79 / M [address] [address] Unit #: [id number] Loc: [place] [address] Phys: Inga Ornelas MD Acct: [id number] Dis Date: Status: REG ER PHONE #: [phone] Exam Date: 07/19/2019 1615 FAX #: Reason: R upper and lower extremity weakness EXAMS: CPT: [id number] CT HEAD/BRAIN W/O CONT 56114 EXAM: - CT HEAD/BRAIN W/O CONT HISTORY: [...] SERRATO : 1940 Age/S: 79 / M [address] [address] Unit #: [id number] Loc: [place] [address] Phys: Inga Ornelas MD Acct: [id number] Dis Date: Status: REG ER PHONE #: [phone] Exam Date: 3 7545 FAX #: Reason: R upper and lower extremity weakness EXAMS: CPT: [id number] CT HEAD/BRAIN W/O CONT 08091 (Continued) CC: Inga Ornelas MD Technologist:Henrry Khanna, RT(R)(CT)(MRI); CTDI: DLP: Trnscb Date/Time: 07/19/2019 (1654) t.[email or web address] Orig Print D/T: S: 07/19/2019 (9371) PAGE 2 Signed ReportCOMPREHENSIVE METABOLIC [id number] 16:51:00 Test Item Value Reference Range Interpretation [...] (test code = ALKP) Completed by Nursing: [id number] 16:51:00 Test Item Value Reference Range Interpretation Comments MAGNESIUM (test code = MAG) 2.0 MG/DL 1.8-2.4 N Completed by Nursing: [id number] 16:51:00 Test Item Value Reference Range Interpretation [...] yby method. Completed by Nursing: NOCBC W/AUTO [id number] 16:19:00 Test Item Value Reference Range Interpretation [...]
[2022-09-18 09:53] VITALS: BMI 20.8
[2022-09-18] MEDS ORDERED: HYDROCODONE/APAP 10/325 TAB PO PRN (10:03)
[2022-09-18] MEDS ORDERED: ACETAMINOPHEN 500 MG TAB PO PRN (10:03)
[2022-09-18] MEDS ORDERED: ONDANSETRON 4 MG (ODT) TAB PO PRN (10:04)
[2022-09-18] MEDS: CYCLOBENZAPRINE 10 MG TAB PO PRN ×2 (11:51→20:27)
[2022-09-18 13:38] LABS: Urine Bilirubin NEGATIVE (Negative); Urine Blood Negative (Negative); Urine Clarity Clear (Clear); Urine Color Light-Yellow (Yellow); Urine Glucose NEGATIVE (Negative); Urine Protein NEGATIVE (Negative); Urine RBC <5 /HPF (None Seen); Urine Urobilinogen Normal (Normal); Urine pH 7.5 (5.0-7.0)
[2022-09-18] MEDS: ATORVASTATIN 40 MG TAB PO SCH (19:40)
[2022-09-18] MEDS: APIXABAN 2.5 MG TABLET PO SCH (19:41)
[2022-09-19 06:25] LABS: Albumin 3.1 g/dL (3.4-5.0); Magnesium 2.4 mg/dL (1.8-2.4); Potassium 3.6 mmol/L (3.5-5.1); Prealbumin 12.1 mg/dL (20-40)
[2022-09-19 06:29] LABS: Absolute Lymphocytes (CBC) 2.7 K/uL (0.7-4.9); Hematocrit 34.5 % (39.6-49.0); MPV 8.7 fL (7.6-11.3); RBC Red Blood Cell Count 3.63 M/uL (4.33-5.43)
[2022-09-19] MEDS: ASPIRIN 81 MG CHEWABLE TABLET PO SCH (07:58)
[2022-09-19] MEDS: APIXABAN 2.5 MG TABLET PO SCH ×2 (07:58→20:05)
[2022-09-19] MEDS ORDERED: lisinopriL 20 MG TAB PO SCH ×2 (08:00→12:35)
[2022-09-19] MEDS: HYDROCODONE/APAP 5/325 MG TAB PO PRN (08:11)
[2022-09-19] MEDS ORDERED: MELATONIN 3 MG TABLET PO PRN (08:34)
[2022-09-19] MEDS: CYCLOBENZAPRINE 10 MG TAB PO PRN (16:44)
[2022-09-19] MEDS: GABAPENTIN 100 MG CAP PO SCH (20:05)
[2022-09-19] MEDS: ATORVASTATIN 40 MG TAB PO SCH (20:05)
--- NOTE | 2022-09-19 20:57 | HP ---
Date of Admission: 09/18/2022 Time: 8:30 a.m. Chief Complaint: Right hip fracture and it is repaired. History Of Present Illness: Mr. 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 He impacted the right hip and immediately felt pain and could not endy r weight. He came to [facility] where imaging revealed an intertrochanteric fracture of edil t right hip extending to the greater trochanter and subtrochanteric regions and the lesser trochanter was also involved with moderate displacement of the fracture fragments. There was valgus angulation at the fracture site. The patient was evaluated by orthopedic surgeon, Dr. Jose Luis Mendez, who re viewed the findings and explained the risks, benefits, and alternatives and the patient underwent rig ht hip closed reduction with intramedullary higinio fixation using the [employer] nail from [employer]. There were no reported complications during the procedure and following procedure, the skin was close d with Vicryl followed by sarah and the patient was put on a touchdown weightbearing status. Prior to his fall and fracture, the patient was fully independent despite his stroke. He could ambul ate distances without an assistive device. He was able to drive a car, go up and down steps, would d ress upper and lower body, and perform all activities of daily living without need for assistance. S mp his fracture and surgical repair, he is at a maximum assistance for ambulation, moderate assista nce for his transfers out of bed, upper and lower body dressing, and has significant pain along with his high risk of comorbidities, which include a risk of deep vein thrombosis, anemia, malnutrition, w orsening hypertension, and additional strokes. Therefore, it is determined that he would be an appro priate candidate for acute inpatient physical and occupational therapy, which can be done aggressivel y with safe situation including medical management on a daily basis of his comorbid conditions and ri sk for worsening neurological condition and deep vein thrombosis. Past Medical History: As noted above, stroke with right-sided deficits. Past Surgical History: None. Family History: Noncontributory. Social History: No alcohol, tobacco, or IV drug use. Allergies: NO KNOWN DRUG ALLERGIES. Medications: At home aspirin 81 mg daily, Atorvastatin 40 mg at bedtime, Zestril 20 mg daily. Review of Systems: Aside from the right hip pain and some mild swelling, he denies any fevers, chills, nausea, vomiting, myalgias, arthralgias, rash, headache, weight change. No psychiatric issues. He has mild weakness that is residual in the right lower extremity. Physical Examination: Vital Signs: Blood pressure 129/60, pulse 72, respiratory rate 18, temperature 97.2, oxygen saturati on 98%. General: Mr. Altamirano is lying in bed, in no acute distress. HEENT: He is normocephalic, atraumatic. Sclerae anicteric. Oropharynx is pink and moist. Neck: Supple. Chest: Clear. Heart: Regular. Extremities: Show no clubbing, cyanosis, or edema. Neurologic: Alert and oriented to person, place, time, and situation. Follows commands appropriatel y. He has 4/5 weakness in the right lower and 5-/5 right upper extremity, left side 5/5. No sensory loss detected in the left upper and lower extremities, subtle in the right lower extremity. His ref lexes are slightly increased on the right lower extremity compared to the left side. In terms of his gait, he is requiring moderate assistance for maintaining touchdown weightbearing status of the righ t lower extremity. Laboratory Studies: White blood cell count 9.6, hemoglobin 11.5, platelets 342. Coagulation: INR 1 .1. Chemistries: Sodium 138, potassium 3.6, chloride 103, carbon dioxide 30, BUN 12, creatinine 0.9 8, glucose ranged from 122 to 156, calcium 8.6. Magnesium 2.4. Albumin 3.1, prealbumin 12.1. Urina lysis shows a pH of 75, but otherwise unremarkable. COVID-19 test is negative. Current Level Of Functioning,: Currently, supine to sit and sit to stand with standby assistance. Scott bates is able to ambulate 70 feet with a front wheel walker. He did that with contact guard assistance. Also, took a short break and ambulated another 20 feet to the bed with contact guard assistance. Rehabilitation And Medical Assessment And Plan: Note, his rehabilitation impairment group 08.11, sta tus post unilateral hip fracture; impairment group orthopedic 07 left lower extremity fracture. Acti ve comorbidities: Hypertension, diabetes mellitus, prior stroke, risk for deep vein thrombosis, mild anemia, risk of medical complications include stroke, myocardial infarction, coronary artery disease , peripheral artery disease, microvascular disease, sepsis, deep vein thrombosis. Plan for his rehabilitation, he will have physical and occupational therapy for 3 hours a day 5/7 day s. Hypertension managed by continuing his medications as listed. For his dyslipidemia, continue med ications listed. For his risk of deep vein thrombosis, Eliquis 2.5 mg twice daily. In addition for stroke risk reduction, aspirin 81 mg daily and folic acid 1 mg daily. His potential risk of malnutri tion and anemia will be addressed, which by protein supplementation for his pre-albumin is 12.1 and h is hemoglobin is 11.5 in addition to iron along with high protein supplementation. He will also be a ssessed for his mood to determine if there is a need for antidepressants. Medications for sleep will be administered as appropriate and for constipation as well appropriate. In fact of comorbidities given his prior stroke involving the right lower extremity, he may take slig htly longer to recover. However, he is already doing very well and has recovered to a baseline follo wing that stroke. In addition, he has hypertension and had a slightly elevated blood sugars, which w ill be evaluated to determine if there is undiagnosed diabetes. He does have a risk of pain and that can be addressed as appropriate and risk of myocardial infarction for which he is on aspirin, those will be addressed. He will have physical and occupational therapy. [facility] and he is able to tolerate the intensive therapy and physical and occupational therapy for a total of 180 minutes a day, minimal 5/7 days a week. His treatment plan consist of intense focus on impro ving his ability to perform activities of daily living, to transfer from bed to chair, commode for to ilet, to ambulate more than household distances, and go up and down steps and do all of these indepen dently, dress upper and lower body independently, shower independently. He has a good understanding of the admission and treatment and discharge process and will benefit from an interdisciplinary appro ach in the rehabilitation process. He has a potential to make significant improvement and will have at least the physical and occupational therapy as appropriate and he would have wound care services a nd psychiatric services if need be. He does have a risk of stroke complications and he will be addre ssed by receiving aspirin and medications as needed. Barriers To Discharge: No significant barriers to discharge. He does have a risk of stroke and myoc ardial infarction. Those are dressed. Estimated Length Of Stay: Around 14 days. Disposition: He is expected to go back home. He has a daughter who is involved in his care. Prognosis: Good. Rehabilitation Goals: He would be able to independently transfer from bed to chair. Maintain a touc hdown weightbearing status that is likely to continue for at least the next 2 weeks to be able to matias ss upper and lower body independently, to be able to do tolerating, showering independently, to be do at least household distances and back around 250 feet independently and up and down 5 steps independ ently. The above goals were reviewed with the patient and he is in agreement. I do acknowledge I personally performed a full physical examination on this patient at 8:30 this morn ing. His admission yesterday was 09:27 and he is in the inpatient rehabilitation unit and is able to tolerate the physical and occupational therapy as outlined above. Another detailed individualized p neelam of care will be completed by the end of day 4 of his hospital stay based on the pre-admission screen, history and physical, and therapeutic e valuation. MIKA/DG Voice ID: [id number]
[2022-09-20] MEDS: HYDROCODONE/APAP 5/325 MG TAB PO PRN ×3 (00:32→15:34)
[2022-09-20] MEDS: GABAPENTIN 100 MG CAP PO SCH ×4 (08:00→20:00)
[2022-09-20] MEDS: MAGNESIUM OXIDE 400 MG TAB PO SCH ×2 (08:00→08:14)
[2022-09-20] MEDS: APIXABAN 2.5 MG TABLET PO SCH ×2 (08:14→19:46)
[2022-09-20] MEDS: ASPIRIN 81 MG CHEWABLE TABLET PO SCH (08:14)
[2022-09-20] MEDS: lisinopriL 5 MG TAB PO SCH (08:56)
--- NOTE | 2022-09-20 19:26 | PN ---
Date of Progress Note: 09/20/2022 Time Of Service: 12:30. Subjective: Mr. Altamirano in terms of subjective denies any significant pain. Pain is managed. He re ceives medications about 30 minutes to 45 minutes before his therapy session. He was actually in the midst of a session where he was ambulating with a rolling walker. Therapist was behind with a wheel chair. He denies any arthralgias, myalgias. No psychiatric issues. No dermatological, no genitouri nary issues. Review of Systems: No fevers, chills, nausea, vomiting. He does have some slight pain at the surgical site, but that is doing very well and it is on the right where he fell. His right hip surgery was done by Dr. Zhang on. He otherwise has a negative review of systems. Physical Examination: Vital Signs: Blood pressure 126/81, pulse 83, respiratory rate 16, temperature 97.2, temperature 97. 2, oxygen saturation 94% to 98% on no oxygen. Pain level ranged to 5. HEENT: He is normocephalic, atraumatic. Sclerae anicteric. Oropharynx is pink and moist. Neck: Supple. Chest: Clear. Heart: Regular. Extremities: Show no significant edema or cyanosis. Surgical site is intact with good hemostasis. Laboratory Studies: White blood cell count 9.6, hemoglobin 11.5, platelets 342. Chemistries: All u nremarkable. Blood glucose 122. Prealbumin low at 12.1, albumin 3.1. Urinalysis is remarkable for pH of 7.5, otherwise negative. COVID-19 test is negative. X-ray Imaging: None. Medications: Tylenol Extra Strength 500 mg every 6 hours, [place] 5/325 every 4 hours, Eliquis 2.5 mg twice daily, aspirin 81 mg daily, Lipitor 40 mg at bedtime, Flexeril 5 mg 3 times daily, gabapentin 100 mg twice daily, Prinivil 5 mg daily, magnesium oxide 400 mg daily, melatonin 3 mg at bedtime, Zof ran 4 mg every 6 hours as needed, Senokot-S 2 at bedtime. Current Level Of Functioning: Currently, Mr. Altamirano is able to stand and pivot transfers and contac t guard assistance using a rolling walker. He was out of bed with wheelchair and contact guard minh tance with verbal cues. He did perform supine to sit, transfers, and standby assistance. He did hav e bilateral seated lower extremity exercises 20 reps, toe raises, heel raises, flexion and hip abduct ion and abduction. Also, supine exercises 20 repetitions involving the quadriceps, gluteals, heels, hip abductors and adductors. Progress towards rehabilitation goals: He is making excellent progress towards his rehabilitation go als following his right hip fracture, improving significantly. His comorbidities are being addressed including blood pressure, blood sugar, and his pain along with malnutrition and risk of deep vein th rombosis. Assessment And Plan: Mr. Altamirano is an 82-year-old patient with a right hip fracture status post pushpa gical repair who is making great progress. Pain is managed. His touchdown weight bearing status is also being adhered to during therapy sessions and his pain is well managed. His bowel movements and sleep are well managed. 1.Hypertension. He is on lisinopril. 2.For his muscle spasms, he is on Flexeril. 3.For pain, he has [place] and Tylenol. 4.For insomnia, melatonin. 5.For constipation following surgery, he is receiving Senokot-S, Flexeril for muscle spasms, Eliquis 2.5 mg twice daily along with aspirin for deep vein thrombosis risk reduction. Comorbidities that impact his reputation process: He has no significant comorbidities preventing him from doing very well. However, his blood pressures and blood sugars are monitored and risk for deep vein thrombosis again monitored. He has muscle spasms as noted above and that is also addressed [facility]. MIKA/DG Voice ID: [id number] Report ID: [id number]
[2022-09-20] MEDS: DOCUSATE NA/SENNA CONC 1 TAB PO PRN (19:46)
[2022-09-20] MEDS: ATORVASTATIN 40 MG TAB PO SCH (19:46)
[2022-09-20] MEDS: CYCLOBENZAPRINE 10 MG TAB PO PRN (19:48)
[2022-09-21] MEDS: lisinopriL 5 MG TAB PO SCH (07:41)
[2022-09-21] MEDS: ASPIRIN 81 MG CHEWABLE TABLET PO SCH (07:42)
[2022-09-21] MEDS: HYDROCODONE/APAP 5/325 MG TAB PO PRN ×2 (07:42→21:43)
[2022-09-21] MEDS: APIXABAN 2.5 MG TABLET PO SCH ×2 (07:42→19:57)
[2022-09-21] MEDS: MAGNESIUM OXIDE 400 MG TAB PO SCH (07:44)
[2022-09-21] MEDS: GABAPENTIN 100 MG CAP PO SCH ×2 (07:44→19:57)
[2022-09-21] MEDS: ATORVASTATIN 40 MG TAB PO SCH (19:57)
[2022-09-22 06:07] LABS: Absolute Lymphocytes (CBC) 2.4 K/uL (0.7-4.9); Hematocrit 32.1 % (39.6-49.0); Lymphocytes % 24.6 % (15.3-44.8); MCV 94.8 fL (80-100); MPV 8.5 fL (7.6-11.3); RBC Red Blood Cell Count 3.38 M/uL (4.33-5.43)
[2022-09-22 06:31] LABS: Albumin 2.9 g/dL (3.4-5.0); Magnesium 2.3 mg/dL (1.8-2.4); Prealbumin 11.3 mg/dL (20-40)
[2022-09-22] MEDS: MAGNESIUM OXIDE 400 MG TAB PO SCH (07:02)
[2022-09-22] MEDS: HYDROCODONE/APAP 5/325 MG TAB PO PRN ×2 (07:20→22:16)
[2022-09-22] MEDS: APIXABAN 2.5 MG TABLET PO SCH ×2 (08:29→20:32)
[2022-09-22] MEDS: lisinopriL 5 MG TAB PO SCH (08:29)
[2022-09-22] MEDS: ASPIRIN 81 MG CHEWABLE TABLET PO SCH (08:29)
[2022-09-22] MEDS: GABAPENTIN 100 MG CAP PO SCH (08:46)
[2022-09-22] MEDS: CYCLOBENZAPRINE 10 MG TAB PO PRN (10:50)
--- NOTE | 2022-09-22 17:42 | PN ---
Date of Progress Note: 09/22/2022 Time: 11:30 a.m. Subjective: Mr. Altamirano is sitting on the side of his bed with his therapist close by. He reports a bout 3 or 4 pain out of 10 in the right hip surgical site. He did mention that his sarah now would be in tomorrow would be 2 weeks and we are planning on removing the sarah at that point. He denie s any other issues. Review of Systems: No fevers, chills. No nausea, vomiting. No myalgias, arthralgias except slight pain on the surgical sites. No rash. No psychiatric issues. No gastrointestinal issues or genitourinary issues. Physical Examination: Vital Signs: Blood pressure 127/58, pulse 76, respiratory rate 18, temperature 97.4, oxygen saturati on 98% on room air. General: Mr. Altamirano is sitting on the side of his bed. HEENT: He is normocephalic, atraumatic. Sclerae anicteric. Oropharynx is moist and pink. Neck: Supple. Chest: Clear. Heart: Regular. Extremities: Show no significant edema or cyanosis. Wound has good hemostasis at the surgical site. Laboratory Studies: White blood cell count 9.6, hemoglobin 10.9, hematocrit 32.1, platelets 341. Ch emistry: Sodium 138, potassium 4.0, chloride 106, carbon dioxide 27, BUN 14, creatinine 0.79, glucos e 115, calcium 8.5, magnesium 2.3, prealbumin 11.3, albumin 2.9. X-ray Imaging: None. Medications: Extra-strength Tylenol 500 mg every 6 hours, [place] 5/325 every 4 hours, Eliquis 2.5 mg twice daily, aspirin 81 mg daily, Lipitor 40 mg at bedtime, Flexeril 5 mg 3 times daily, gabapentin 1 00 mg twice daily, Prinivil 5 mg daily, melatonin 3 mg at bedtime, Zofran 4 mg every 4 hours as neede d, Senokot-S 2 at bedtime. Progress toward rehabilitation goals: He is making excellent progress toward his goals of becoming i ndependent with his upper and lower body dressing, donning and doffing his shoes, transfer from bed t o toilet commode, chair to go sit to stand, to perform his showers and toileting as well as to become independent with his gait covering at least around 250 feet with a rolling walker and perhaps withou t an assistive device. Assessment And Plan: Mr. Altamirano is an 82-year-old patient with right hip fracture status post repai r, who is making excellent progress with physical and occupational therapy. His hypertension is donovan ged with multiple medications as noted including Prinivil. He does have muscle spasms, managed with Flexeril; dyslipidemia, treated with Lipitor; risk for deep vein thrombosis, treated with Eliquis and aspirin. His pain is managed by [place] and acetaminophen. Constipation, managed by Gela Donato ea, treated with Zofran. Insomnia, treated with melatonin. Comorbidities that continue to impact his rehabilitation process. No significant comorbidities at th is point are limiting his rehabilitation. He is doing very well including his pain and blood pressur e, his risk of deep vein thrombosis, and constipation all managed. MIKA/DG Voice ID: [id number] Report ID: [id number]
[2022-09-22] MEDS: ATORVASTATIN 40 MG TAB PO SCH (20:32)
[2022-09-22] MEDS: DOCUSATE NA/SENNA CONC 1 TAB PO PRN (22:16)
[2022-09-23] MEDS: HYDROCODONE/APAP 5/325 MG TAB PO PRN ×2 (08:09→20:03)
[2022-09-23] MEDS: APIXABAN 2.5 MG TABLET PO SCH ×2 (08:11→20:00)
[2022-09-23] MEDS: lisinopriL 5 MG TAB PO SCH (08:11)
[2022-09-23] MEDS: ASPIRIN 81 MG CHEWABLE TABLET PO SCH (08:11)
--- NOTE | 2022-09-23 08:56 | P.RH.PN ---
Estimated Length of Stay: 10 Expected Discharge Date: 09/24/22 Discharge Disposition Plan: Home Family Support: Yes Group Home Goal: Mobility, Transfers, Self Care Vital Signs: Last Vital Signs Temp 97.3 F 09/23/22 07:10 Pulse 70 09/23/22 08:11 Resp 16 09/23/22 08:09 BP 110/57 L 09/23/22 08:11 Pulse Ox 97 09/23/22 08:09 Laboratory: Laboratory Last Values WBC 9.60 K/uL (4.3-10.9) 09/22/22 04:58 RBC 3.38 M/uL (4.33-5.43) L 09/22/22 04:58 Hgb 10.9 g/dL (13.6-17.9) L 09/22/22 04:58 Hct 32.1 % (39.6-49.0) L 09/22/22 04:58 MCV 94.8 fL (80-100) 09/22/22 04:58 MCH 32.1 pg (27.0-35.0) 09/22/22 04:58 MCHC 33.9 g/dL (32.0-36.0) 09/22/22 04:58 RDW 14.8 % (12.1-15.2) 09/22/22 04:58 Plt Count 341 K/uL (152-406) 09/22/22 04:58 MPV 8.5 fL (7.6-11.3) 09/22/22 04:58 Neutrophils % 63.9 % (41.7-73.7) 09/22/22 04:58 Lymphocytes % 24.6 % (15.3-44.8) 09/22/22 04:58 Monocytes % 8.1 % (3.3-12.3) 09/22/22 04:58 Eosinophils % 2.7 % (0-4.4) 09/22/22 04:58 Basophils % 0.7 % (0-1.3) 09/22/22 04:58 Absolute Neutrophils 6.1 K/uL (1.8-8.0) 09/22/22 04:58 Absolute Lymphocytes 2.4 K/uL (0.7-4.9) 09/22/22 04:58 Absolute Monocytes 0.8 K/uL (0.1-1.3) 09/22/22 04:58 Absolute Eosinophils 0.3 K/uL (0-0.5) 09/22/22 04:58 Absolute Basophils 0.1 K/uL (0-0.5) 09/22/22 04:58 Sodium 138 mmol/L (136-145) 09/22/22 04:58 Potassium 4.0 mmol/L (3.5-5.1) 09/22/22 04:58 Chloride 106 mmol/L (98-107) 09/22/22 04:58 Carbon Dioxide 27 mmol/L (21-32) 09/22/22 04:58 Anion Gap 9.0 mEq/L (5.0-15.0) 09/22/22 04:58 BUN 14 mg/dL (7-18) 09/22/22 04:58 Creatinine 0.79 mg/dL (0.55-1.3) 09/22/22 04:58 Est GFR (CKD-EPI) 88 ml/min (=/>90) L 09/22/22 04:58 Glucose 115 mg/dL (74-106) H 09/22/22 04:58 Calcium 8.5 mg/dL (8.5-10.1) 09/22/22 04:58 Magnesium 2.3 mg/dL (1.8-2.4) 09/22/22 04:58 Albumin 2.9 g/dL (3.4-5.0) L 09/22/22 04:58 Prealbumin 11.3 mg/dL (20-40) L 09/22/22 04:58 Urine Color Light-yellow (Yellow) 09/18/22 12:20 Urine Clarity Clear (Clear) 09/18/22 12:20 Urine pH 7.5 (5.0-7.0) H 09/18/22 12:20 Ur Specific [place] 1.010 (1.005-1.030) 09/18/22 12:20 Glucose (UA)(Auto) Negative (Negative) 09/18/22 12:20 Urine Ketones Negative (Negative) 09/18/22 12:20 Urine Blood Negative (Negative) 09/18/22 12:20 Urine Nitrite Negative (Negative) 09/18/22 12:20 Urine Bilirubin Negative (Negative) 09/18/22 12:20 Urine Urobilinogen Normal (Normal) 09/18/22 12:20 Ur Leukocyte Esterase Negative Betty/uL (Negative) 09/18/22 12:20 Urine RBC <5 /HPF (None Seen) 09/18/22 12:20 Urine WBC <5 /HPF (<5) 09/18/22 12:20 Amorphous Crystals Trace /HPF (None Seen) 09/18/22 12:20 Urine Total Protein Negative (Negative) 09/18/22 12:20 SARS-CoV-2 Rap RNA(RT-PCR) Negative (NEGATIVE) 09/18/22 13:30 Weight: 129 lb 4.8 oz Wound Present: No Closed Surgical Incision Present: No Negative Pressure Wound Therapy Present: No Physician Update: His blood work is unremarkable. His pain level is well controlled. She is making very good progress with all ADLs and physical therapy with goal to be independent. Summary: Patient's care plan and buttermaker continuous churn goals have been reviewed and revised as necessary. Please see the Rehabilitation Signature page for all necessary signatures.
[2022-09-23] MEDS: ENSURE HIGH PROTEIN 237 ML CAN PO SCH ×2 (20:00)
[2022-09-23] MEDS: ATORVASTATIN 40 MG TAB PO SCH (20:00)
[2022-09-24] MEDS: HYDROCODONE/APAP 5/325 MG TAB PO PRN ×2 (04:00→10:05)
[2022-09-24 07:18] VITALS: BP 116/57; TEMP 97.1
[2022-09-24] MEDS: ENSURE HIGH PROTEIN 237 ML CAN PO SCH (07:42)
[2022-09-24] MEDS: ASPIRIN 81 MG CHEWABLE TABLET PO SCH (07:43)
[2022-09-24] MEDS: APIXABAN 2.5 MG TABLET PO SCH (07:43)
[2022-09-24] MEDS: lisinopriL 5 MG TAB PO SCH (07:43)
--- NOTE | 2022-09-29 22:05 | DS ---
Date of Discharge: 09/24/2022 Discharge Diagnoses: Right hip fracture after a fall, status post repair of a fracture that extended to the greater trochanter and subtrochanteric region as well as the lesser trochanter and fracture h ad a moderate fracture displacement. His procedure was done by Dr. Jose Luis Mendez and consisted of an intramedullary higinio fixation using the [employer] nail from [employer]. Other diagnoses are strok e with good recovery, dyslipidemia, hypertension, neuropathic pain, and constipation. Consultations: No consultations during hospitalization. Procedures: No procedures during hospitalization. Allergies: NO KNOWN DRUG ALLERGIES. Wound Care: The patient's surgical wound was addressed with sarah removed prior to his discharge a nd it was found 13 sarah were removed and his wound was dressed with clean and daily changes and hi s wound will be followed up by his orthopedic surgeon, Dr. Mendez. Home Health: He was discharged home with home physical therapy services. Durable medical equipment needs were met. He was able to perform car transfers independently and used a rolling walker. Discharge Laboratory Data: Blood cell count 5.6, hemoglobin 10.9, hematocrit 32.1, and platelets 341 . Chemistries: Sodium 138, potassium 4.0, chloride 106, carbon dioxide 27, BUN 14, creatinine 0.79, glucose 115, calcium 8.5, magnesium 2.1, albumin 2.9, and prealbumin 11.3. COVID test on 09/18 was negative. Urinalysis on 09/18 was remarkable for pH of 7.5, but otherwise normal. X-rays: None. Hospital Course: Mr. Altamirano did well throughout his hospitalization. His blood pressures were donovan ged well with systolics often ranging in the one-teens to 120s. His temperature remained afebrile th roughout. His white blood cell count remained normal. There were no signs of infection at the surgi carlitos site. He did not have any evidence of stroke or deep vein thrombosis. He was kept on deep vein thrombosis prophylaxis throughout hospitalization with Eliquis 2.5 mg twice daily and aspirin 81 mg d aily. Regarding his physical therapy, by discharge he was able to transfer to a car independently. He mobilized a wheelchair 250 feet on multiple surfaces with modified independence. He ascended and descended 1 platform step with a rolling walker with supervision. He ambulated with a rolling walker over 250 feet on tiled and carpeted surfaces with good tolerance and stair negotiation was with fair tolerance. Regarding his occupational therapy, toilet transfers he was able to do with touchdown we ightbearing with modified independence. Lower body dressing done with independence as well as upper body dressing. He was modified independent for all aspects of self-care and he was able to address i ssues regarding his risk of falling and he understood verbally what was communicated. Diet: Heart healthy. Discharge Equipment: Rolling walker and raised toilet commode. Medications: Extra-strength Tylenol 500 mg every 6 hours, [place] 10/325 every 4 hours, Eliquis 2.5 mg twice daily, aspirin 81 mg daily, atorvastatin 40 mg at bedtime, Flexeril 5 mg 3 times daily, gabape ntin 100 mg twice daily, Prinivil 20 mg daily, magnesium oxide 400 mg daily, melatonin 3 mg at bedtim e, Ensure Plus 237 mL twice daily, Zofran 4 mg every 4 hours as needed, and Senokot-S 2 at bedtime. Discharge Condition: Good. MIKA/DG Voice ID: [id number] Report ID: [id number]
== END 2022-09-24 11:40 | disposition home health service (06) | DRG 561 ==
LOC: 5TH 09:27
PROVIDERS: ADMIT Psychiatry & Neurology Neurology with Special Qualifications in Child Neurology; ATTEND Psychiatry & Neurology Neurology with Special Qualifications in Child Neurology
DX: S72.001D Fracture of unspecified part of neck of right femur, subsequent encounter for closed fracture with routine healing (principal); I10 Essential (primary) hypertension; E78.5 Hyperlipidemia, unspecified; G47.00 Insomnia, unspecified; K59.00 Constipation, unspecified; M62.838 Other muscle spasm; I69.341 Monoplegia of lower limb following cerebral infarction affecting right dominant side; Z79.82 Long term (current) use of aspirin; Z79.01 Long term (current) use of anticoagulants; Z79.899 Other long term (current) drug therapy; Z20.822 Contact with and (suspected) exposure to COVID-19
CPT/HCPCS: 36415; 80048; 81001; 82040; 83735; 84134; 85025; 87086; 87088; 97110; 97116; 97161; 97165; 97530; 97542; U0003